=== PATIENT | female | born 1970 | race Caucasian/White ===

== ENCOUNTER 2017-01-13 00:56 | Emergency (ER) | payer SELFPAY ==
[2017-01-13 01:18] VITALS: PULSE 65; RESP 16; TEMP 98; O2SAT 98
[2017-01-13] MEDS ORDERED: Sodium Chloride 0.9% 1,000 ML IV STA (01:48)
--- NOTE | 2017-01-13 02:07 | ED PDOC ---
HPI: Headache Time Seen by Provider: 01/13/17 01:15 Chief Complaint (Nursing): Headache Chief Complaint (Provider): headache History Per: Patient History/Exam Limitations: no limitations Onset/Duration Of Symptoms: Days (3), Waxing/Waning Current Symptoms Are (Timing): Still Present Quality: Pressure, "Pain" Additional History Per: Patient Additional Complaint(s): 46 y/o female history of migraines, hypertension presents with intermittent left -sided headache x 3 days. Patient notes no improvement with Fioricet and extra Lisinopril doses. Patient notes intermittent chest pressure x 12 hours today. Patient states she took a Benadryl tonight to see if it would help with her symptoms and afterwards felt very "weak" and "tired". Denies fever, dizziness, neck pain, vision changes, extremity numbness/weakness, shortness of breath, palpitations, abdominal pain, leg pain/swelling. Patient denies trauma, problems at home. Past Medical History Reviewed: Historical Data, Nursing Documentation, Vital Signs Vital Signs: Last Vital Signs Temp 98.0 F 01/13/17 01:14 Pulse 65 01/13/17 01:14 Resp 16 01/13/17 01:14 BP 122/68 01/13/17 01:14 Pulse Ox 98 01/13/17 01:14 - Medical History PMH: HTN, Migraine - Family History Family History: States: Unknown Family Hx - Home Medications Home Medications: Ambulatory Orders Medication Instructions Recorded Clindamycin [Cleocin] 300 mg PO BID #14 cap 01/14/16 Ibuprofen [Motrin] 600 mg PO Q6 #20 tab 01/14/16 DiphenhydrAMINE [Benadryl] 25 mg PO Q6H PRN #10 cap 12/06/16 predniSONE [Prednisone] 40 mg PO DAILY #8 tab 12/06/16 Naproxen [Naprosyn] 500 mg PO Q12 PRN #20 tablet 01/13/17 - Allergies Allergies/Adverse Reactions: Allergies Allergy/AdvReac Type Severity Reaction Status Date / Time amoxicillin Allergy RASH Verified 01/13/17 01:17 Penicillins Allergy RASH Verified 01/14/16 18:14 Review of Systems ROS Statement: Except As Marked, All Systems Reviewed And Found Negative Cardiovascular: Positive for: Chest Pain Neurological: Positive for: Headache Physical Exam - Reviewed Nursing Documentation Reviewed: Yes Vital Signs Reviewed: Yes - Physical Exam Appears: Positive for: Well, Non-toxic, No Acute Distress Head Exam: Positive for: ATRAUMATIC, NORMAL INSPECTION, NORMOCEPHALIC Skin: Positive for: Normal Color Eye Exam: Positive for: Normal appearance, EOMI, PERRL ENT: Positive for: Normal ENT Inspection Cardiovascular/Chest: Positive for: Regular Rate, Rhythm Respiratory: Positive for: Normal Breath Sounds Gastrointestinal/Abdominal: Positive for: Normal Exam Back: Positive for: Normal Inspection Extremity: Positive for: Normal ROM Neurologic/Psych: Positive for: Alert, Oriented - Laboratory Results Result Diagrams: 01/13/17 02:23 01/13/17 02:23 - ECG ECG: Positive for: Viewed By Me (reviewed by ED attending) ECG Rhythm: Positive for: Sinus Rhythm O2 Sat by Pulse Oximetry: 98 Pulse Ox Interpretation: Normal - Radiology X-Ray: Viewed By Me X-Ray Interpretation: No Acute Disease - Progress ED Course And Treament: labs, CT head, chest xray, IV fluids, IV reglan, PO tylenol EXAM: CT Head Without Intravenous Contrast. CLINICAL HISTORY: 46 years old, female; Pain; Headache TECHNIQUE: Axial computed tomography images of the head/brain without intravenous contrast. This CT exam was performed using one or more of the following dose reduction techniques: automated exposure control, adjustment of the mA and/or kV according to patient size, and/or use of iterative reconstruction technique. Coronal and sagittal reformatted images were created and reviewed. EXAM DATE/TIME: 01/13/2017 1:45 AM COMPARISON: None is available. FINDINGS: BRAIN: Faint basal ganglia calcification, which is most likely physiologic in nature, in a patient of this age. No other significant abnormality identified. No acute hemorrhage seen within the brain. No acute extra-axial fluid collections visualized. No evidence of significant mass effect within the brain. Normal rodgers-white matter differentiation. VENTRICLES: No evidence of significant hydrocephalus. BONES/JOINTS: No acute fractures or other acute bony abnormality noted. SOFT TISSUES: No acute abnormality of the visualized soft tissues is seen. SINUSES: Visualized paranasal sinuses appear clear. MASTOID AIR CELLS: Mastoid air cells appear clear. IMPRESSION: - No acute findings seen within the brain. - See above for remaining findings. On re-eval, patient sleeping; upon awakening states headache resolved. Patient educated on findings, discharged with rx Naproxen. Advised follow up PMD 2-3 days. Return to ED for worsening/concerning symptoms. Disposition - Clinical Impression Clinical Impression: Headache, Chest pain - Patient ED Disposition Is Patient to be Admitted: No Counseled Patient/Family Regarding: Studies Performed, Diagnosis, Need For Followup, Rx Given - Disposition Disposition: Routine/Home Disposition Time: 03:52 Condition: IMPROVED Prescriptions: Naproxen [Naprosyn] 500 mg PO Q12 PRN #20 tablet PRN Reason: Pain, Moderate (4-7) Instructions: Acute Headache (ED), Noncardiac Chest Pain (ED)
[2017-01-13 02:29] LABS: BASO # 0.1 K/uL (0.0-0.2); BASO % 0.8 % (0.0-2.0); EOS # 0.1 K/uL (0.0-0.7); HEMATOCRIT 37.4 % (34.0-47.0); LYMPH # 1.8 K/uL (1.0-4.3); LYMPH % 24.1 % (20.0-40.0); MEAN CELL VOLUME 87.4 fl (81.0-99.0); MEAN CORPUSCULAR HEMOGLOBIN 29.3 pg (27.0-31.0); MEAN CORPUSCULAR HGB CONC 33.6 g/dL (33.0-37.0); MEAN PLATELET VOLUME 10.4 fl (7.2-11.7); MONO # 0.6 K/uL (0.0-0.8); MONO % 8.7 % (0.0-10.0); NEUT # 4.8 K/uL (1.8-7.0); NEUT % 64.4 % (50.0-75.0); NRBC % 0.1 % (0.0-0.0); RED CELL DISTRIBUTION WIDTH 14.1 % (11.5-14.5); WHITE BLOOD COUNT 7.4 K/uL (4.8-10.8)
[2017-01-13 02:32] LABS: CHLORIDE 101 mmol/L (98-107); SODIUM 139 mmol/l (132-148)
[2017-01-13 02:33] LABS: POTASSIUM 3.9 MMOL/L (3.6-5.0)
[2017-01-13 02:34] LABS: GFR AFRICAN-AMERICAN > 60
[2017-01-13 02:35] LABS: ALB/GLOB RATIO 1.2 (1.0-2.1); ALKALINE PHOSPHATASE 68 U/L (38-126); ALT/SGPT 46 U/L (9-52); AST/SGOT 38 U/L (14-36); BILIRUBIN,TOTAL 0.5 mg/dl (0.2-1.3); BLOOD UREA NITROGEN 12 mg/dl (7-17); CALCIUM 9.8 mg/dL (8.4-10.2); CARBON DIOXIDE 26 mmol/L (22-30); GLUCOSE,RANDOM 95 mg/dL (65-105); TOTAL PROTEIN 7.9 G/DL (6.3-8.2)
--- NOTE | 2017-01-13 02:38 | CT ---
EXAM: CT Head Without Intravenous Contrast. CLINICAL HISTORY: 46 years old, female; Pain; Headache TECHNIQUE: Axial computed tomography images of the head/brain without intravenous contrast. This CT exam was performed using one or more of the following dose reduction techniques: automated exposure control, adjustment of the mA and/or kV according to patient size, and/or use of iterative reconstruction technique. Coronal and sagittal reformatted images were created and reviewed. EXAM DATE/TIME: 01/13/2017 1:45 AM COMPARISON: None is available. FINDINGS: BRAIN: Faint basal ganglia calcification, which is most likely physiologic in nature, in a patient of this age. No other significant abnormality identified. No acute hemorrhage seen within the brain. No acute extra-axial fluid collections visualized. No evidence of significant mass effect within the brain. Normal rodgers-white matter differentiation. VENTRICLES: No evidence of significant hydrocephalus. BONES/JOINTS: No acute fractures or other acute bony abnormality noted. SOFT TISSUES: No acute abnormality of the visualized soft tissues is seen. SINUSES: Visualized paranasal sinuses appear clear. MASTOID AIR CELLS: Mastoid air cells appear clear. IMPRESSION: - No acute findings seen within the brain. - See above for remaining findings.
[2017-01-13 04:15] VITALS: BP 121/67
--- NOTE | 2017-01-13 07:07 | CARD ---
APPROVED REPORT EKG Measurement Heart [id number] <Conclusion> Normal sinus rhythm Possible Left atrial enlargement Borderline ECG
--- NOTE | 2017-01-13 11:37 | RAD ---
HISTORY: chest pain COMPARISON: No prior. FINDINGS: LUNGS: The lungs are well inflated and clear. PLEURA: No significant pleural effusion identified, no pneumothorax apparent. CARDIOVASCULAR: Normal. OSSEOUS STRUCTURES: No significant abnormalities. VISUALIZED UPPER ABDOMEN: Normal. OTHER FINDINGS: None. IMPRESSION: No active pulmonary disease.
== END 2017-01-13 04:20 | disposition home or self-care (01) ==
LOC: H.ER 00:56
DX: R51 Headache (principal); R07.89 Other chest pain
CPT/HCPCS: 70450; 71010; 80053; 81025; 84484; 85025; 93005; 96365; 99283; J2765; J7040

== ENCOUNTER 2017-07-14 14:30 | Observation (INO) | payer MEDICAID ==
--- NOTE | 2017-07-14 15:36 | ED PDOC ---
HPI: Abdomen Time Seen by Provider: 07/14/17 15:10 Chief Complaint (Nursing): Abdominal Pain Chief Complaint (Provider): Abdominal pain History Per: Patient History/Exam Limitations: no limitations Onset/Duration Of Symptoms: Days (1) Outside of [place] travel?: No Current Symptoms Are (Timing): Still Present Location Of Pain/Discomfort: LLQ Quality Of Discomfort: "Pain" Associated Symptoms: Nausea. denies: Fever, Chills, Vomiting, Diarrhea Additional History Per: Patient Additional Complaint(s): The patient is a 47yo female, presents to ED for evaluation of left sided lower abdominal pain, ongoing since last night. Patient reports the pain is constant and not related to food or urinary discomfort. Patient reports she feels a lot of pain with movement and is also complaining of a bitter taste in her mouth which she describes as reflux. She also reports associated nausea but denies any fever, vomiting, diarrhea or urinary symptoms. Patient is additionally complaining of mild vaginal spotting, present for the past 2 months without pain. She offers no other medical complaints. PCP: Veronique carver Abnormal Vaginal Bleeding: Yes Past Medical History Reviewed: Historical Data, Nursing Documentation, Vital Signs Vital Signs: Last Vital Signs Temp 98 F 07/14/17 14:37 Pulse 56 L 07/14/17 22:10 Resp 18 07/14/17 14:37 BP 139/77 07/14/17 14:37 Pulse Ox 99 07/14/17 22:10 - Medical History PMH: Gastritis, HTN, Migraine - Surgical History Other surgeries: breast fibroma removal - Family History Family History: States: No Known Family Hx, Unknown Family Hx - Social History Current smoker - smoking cessation education provided: No Ex-Smoker (has not smoked in the last 12 months): No Alcohol: None Drugs: Denies - Home Medications Home Medications: Ambulatory Orders Medication Instructions Recorded Clindamycin [Cleocin] 300 mg PO BID #14 cap 01/14/16 Ibuprofen [Motrin] 600 mg PO Q6 #20 tab 01/14/16 DiphenhydrAMINE [Benadryl] 25 mg PO Q6H PRN #10 cap 12/06/16 predniSONE [Prednisone] 40 mg PO DAILY #8 tab 12/06/16 Naproxen [Naprosyn] 500 mg PO Q12 PRN #20 tablet 01/13/17 Omeprazole 20 mg PO DAILY #30 tablet. 07/14/17 - Allergies Allergies/Adverse Reactions: Allergies Allergy/AdvReac Type Severity Reaction Status Date / Time amoxicillin Allergy RASH Verified 01/13/17 01:17 Penicillins Allergy RASH Verified 01/14/16 18:14 Physical Exam - Reviewed Nursing Documentation Reviewed: Yes Vital Signs Reviewed: Yes - Physical Exam Appears: Positive for: Non-toxic, No Acute Distress Head Exam: Positive for: ATRAUMATIC, NORMAL INSPECTION, NORMOCEPHALIC Skin: Positive for: Warm Eye Exam: Positive for: EOMI, PERRL Neck: Positive for: Supple Cardiovascular/Chest: Positive for: Regular Rate, Rhythm Respiratory: Positive for: Normal Breath Sounds. Negative for: Wheezing, Respiratory Distress Gastrointestinal/Abdominal: Positive for: Soft, Tenderness (left lower quadrant tenderness) Extremity: Positive for: Normal ROM. Negative for: Deformity, Swelling Neurologic/Psych: Positive for: Alert, Oriented. Negative for: Motor/Sensory Deficits - Laboratory Results Result Diagrams: 07/14/17 16:25 07/14/17 16:29 - ECG ECG: Positive for: Interpreted By Me, Viewed By Me ECG Rhythm: Positive for: Normal QRS, Normal ST Segment, Sinus Bradycardia Rate: 56 O2 Sat by Pulse Oximetry: 99 (RA) Pulse Ox Interpretation: Normal Medical Decision Making Medical Decision Making: Time: 1540 Impression: Abdominal pain Differential: Diverticulitis, ovarian cyst, uterine fibroids, UTI, other conditions considered not listed. Plan: -- CT AP PO & IV Contrast -- Labs -- Morphine 2mg IV -- Zofran 4mg IV -- ED Observation Scribe Attestation: Documented by Beena Bartlett acting as a scribe for Gerasim Orbelyan, MD. Provider Attestation: All medical record entries made by the Scribe were at my direction and personally dictated by me. I have reviewed the chart and agree that the record accurately reflects my personal performance of the history, physical exam, medical decision making, and the department course for this patient. I have also personally directed, reviewed, and agree with the discharge instructions and disposition. ED OBSERVATION Date of observation admission: 07/14/17 Time of observation admission: 15:38 - Observation admission statement Patient is being placed in observation because:: Patient with abdominal pain, vaginal bleeding x 2 months. - Goals of Observation Goals of observation are:: Pending ER workup - Progress Note Progress Note: 07/14/17 15:38 Patient pending ED workup. 07/14/17 17:[address] A/P with PO and IV contrast 07/14/17 19:[address] A/P with PO and IV Contrast FINDINGS: Lower thorax: There is minimal bibasilar atelectatic change or scarring. ABDOMEN: Liver: There is diffuse fatty liver and hepatomegaly. Gallbladder and bile ducts: Unremarkable. No calcified stones. No ductal dilation. Pancreas: Unremarkable. No mass. No ductal dilation. Spleen: Unremarkable. No splenomegaly. Adrenals: Unremarkable. No mass. Kidneys and ureters: Unremarkable. No solid mass. No hydronephrosis. Stomach and bowel: Unremarkable. No obstruction. No mucosal thickening. Appendix: The appendix is unremarkable and seen best on axial image 113 of series 3. PELVIS: Bladder: Unremarkable. No mass. Reproductive: Unremarkable as visualized. ABDOMEN and PELVIS Intraperitoneal space: Unremarkable. No free air. No significant fluid collection. Bones/joints: There are degenerative changes of the spine. No acute fracture. No dislocation. Soft tissues: Unremarkable. Vasculature: Unremarkable. No abdominal aortic aneurysm. Lymph nodes: There are prominent right lower quadrant mesenteric lymph nodes suspicious for mild mesenteric adenitis. IMPRESSION: 1. There are prominent right lower quadrant mesenteric lymph nodes suspicious for mild mesenteric adenitis. 2. No other acute CT pathology 07/14/17 22:07 US Transvaginal FINDINGS: Uterus/cervix: Uterus measures 7.4 x 3.9 x 5.2 cm in size. Few uterine masses, largest measuring 2.9 x 2.9 x 2.4 cm along lower uterine segment/cervix and pedunculated. Endometrium: 0.4 cm in thickness. Right ovary: 2.2 x 1.3 x 1.9 cm in size. No mass. Normal flow. Left ovary: 1.7 x 1.2 x 1.9 cm in size. No mass. Normal flow. Free fluid: No significant free fluid. Bladder: Empty bladder which cannot be evaluated with this probe. IMPRESSION: 1. Probable fibroid uterus. Patient is stable, and has no complaints at this time. Results discussed with patient, is advised to follow up at the clinic. Patient will be give Rx for Prilosec for her gastritis, and is stable for discharge home. Clinical Impression: Mesenteric adenitis/Uterine fibroid Disposition - Clinical Impression Clinical Impression: Mesenteric adenitis, Uterine fibroid - Patient ED Disposition Is Patient to be Admitted: No Doctor Will See Patient In The: Office Counseled Patient/Family Regarding: Studies Performed, Diagnosis, Need For Followup - Disposition Disposition: Routine/Home Disposition Time: 22:06 Condition: STABLE
[2017-07-14] MEDS ORDERED: Iohexol 240 (50 ml) ONE (16:38)
[2017-07-14 16:41] LABS: BASO % 0.7 % (0.0-2.0); EOS # 0.1 K/uL (0.0-0.7); EOS % 1.5 % (0.0-4.0); HEMATOCRIT 38.3 % (34.0-47.0); LYMPH # 1.4 K/uL (1.0-4.3); LYMPH % 21.8 % (20.0-40.0); MEAN CELL VOLUME 88.6 fl (81.0-99.0); MEAN CORPUSCULAR HGB CONC 32.8 g/dL (33.0-37.0); MEAN PLATELET VOLUME 10.4 fl (7.2-11.7); MONO # 0.6 K/uL (0.0-0.8); NEUT # 4.1 K/uL (1.8-7.0); RED CELL DISTRIBUTION WIDTH 13.9 % (11.5-14.5); WHITE BLOOD COUNT 6.3 K/uL (4.8-10.8)
[2017-07-14] MEDS ORDERED: Iohexol 240 (50 ml) PO ONE (16:50)
[2017-07-14 17:02] LABS: ALB/GLOB RATIO 1.3 (1.0-2.1); ALKALINE PHOSPHATASE 54 U/L (38-126); ALT/SGPT 55 U/L (9-52); AST/SGOT 39 U/L (14-36); BILIRUBIN,TOTAL 0.5 mg/dl (0.2-1.3); BLOOD UREA NITROGEN 15 mg/dl (7-17); CALCIUM 9.5 mg/dL (8.4-10.2); CARBON DIOXIDE 24 mmol/L (22-30); CHLORIDE 105 mmol/L (98-107); GFR AFRICAN-AMERICAN > 60; GLUCOSE,RANDOM 88 mg/dL (65-105); LIPASE 150 U/L (23-300); POTASSIUM 3.8 MMOL/L (3.6-5.0); SODIUM 142 mmol/l (132-148); TOTAL PROTEIN 7.5 G/DL (6.3-8.2)
[2017-07-14] MEDS ORDERED: Iohexol 300 100 ML IJ ONE (18:47)
[2017-07-14] MEDS ORDERED: Sodium Chloride 0.9% 50 ML IV ONE (18:47)
--- NOTE | 2017-07-14 21:48 | US ---
EXAM: US Pelvis, Transvaginal CLINICAL HISTORY: 47 years old, female; Pain; Other: Left pelvic pain TECHNIQUE: Real-time transvaginal pelvic ultrasound (complete) with image documentation. Transvaginal imaging was used for better evaluation of the endometrium and adnexa. COMPARISON: CT - ABD PELVIS PO IV CON 07/14/2017 6:56:25 PM FINDINGS: Uterus/cervix: Uterus measures 7.4 x 3.9 x 5.2 cm in size. Few uterine masses, largest measuring 2.9 x 2.9 x 2.4 cm along lower uterine segment/cervix and pedunculated. Endometrium: 0.4 cm in thickness. Right ovary: 2.2 x 1.3 x 1.9 cm in size. No mass. Normal flow. Left ovary: 1.7 x 1.2 x 1.9 cm in size. No mass. Normal flow. Free fluid: No significant free fluid. Bladder: Empty bladder which cannot be evaluated with this probe. IMPRESSION: 1. Probable fibroid uterus.
[2017-07-14 22:18] VITALS: BP 125/80; PULSE 75; RESP 16; TEMP 97.9; O2SAT 100
--- NOTE | 2017-07-15 08:38 | CARD ---
APPROVED REPORT EKG Measurement Heart [id number] <Conclusion> Sinus bradycardia Otherwise normal ECG
--- NOTE | 2017-07-15 09:06 | CT ---
PROCEDURE: CT Abdomen and Pelvis with contrast HISTORY: lower abdominal pain LLQ COMPARISON: Not available TECHNIQUE: Contrast dose: 100 mL Omnipaque 300 Radiation dose: Total exam DLP = 1216.07 mGy-cm. This CT exam was performed using one or more of the following dose reduction techniques: Automated exposure control, adjustment of the mA and/or kV according to patient size, and/or use of iterative reconstruction technique. FINDINGS: LOWER THORAX: Unremarkable. LIVER: Mild hepatomegaly. Smooth contour. No mass. No biliary dilatation. Diffusely diminished attenuation consistent with fatty infiltration. GALLBLADDER AND BILE DUCTS: Unremarkable. PANCREAS: Unremarkable. No gross lesion or ductal dilatation. SPLEEN: Unremarkable. ADRENALS: Unremarkable. No mass. KIDNEYS AND URETERS: Unremarkable. No hydronephrosis. No solid mass. VASCULATURE: Unremarkable. No aortic aneurysm. BOWEL: Unremarkable. No obstruction. No gross mural thickening. APPENDIX: Normal appendix. PERITONEUM: Unremarkable. No free fluid. No free air. LYMPH NODES: No retroperitoneal or pelvic lymphadenopathy. There are shotty subcentimeter mesenteric lymph nodes identified within the small bowel mesenteric and in the right lower quadrant medial to the cecum/ascending colon. This is nonspecific but may indicate a mesenteric adenitis. BLADDER: Unremarkable. REPRODUCTIVE: Unremarkable uterus BONES: No acute fracture. OTHER FINDINGS: None. IMPRESSION: Shotty subcentimeter mesenteric nodes in the small bowel mesenteric and medial to the cecum/ascending colon. Consistent with mesenteric adenitis. No evidence of diverticulitis. Mild hepatomegaly with fatty infiltration of the liver. No additional abnormality. Preliminary interpretation of this examination was reported by [email or web address] at 7:39 p.m. on 07/14/2017. There is concurrence of this report with the preliminary interpretation.
== END 2017-07-14 22:18 | disposition home or self-care (01) ==
LOC: H.ER 14:30 → H.EROBSV 15:38
PROVIDERS: ADMIT Emergency Medicine; ATTEND Emergency Medicine
DX: I88.0 Nonspecific mesenteric lymphadenitis (principal); D25.9 Leiomyoma of uterus, unspecified; K29.70 Gastritis, unspecified, without bleeding; I10 Essential (primary) hypertension; G43.909 Migraine, unspecified, not intractable, without status migrainosus; Z88.0 Allergy status to penicillin
CPT/HCPCS: 36415; 74177; 76830; 80053; 81025; 83690; 85025; 93005; 96374; 96375; 99284; G0378; J2270; J2405; Q9966; Q9967

== ENCOUNTER 2017-08-05 15:57 | Emergency (ER) | payer MEDICAID ==
[2017-08-05 16:14] VITALS: O2SAT 98
[2017-08-05] MEDS ORDERED: DiphenhydrAMINE 50 mg/ml Inj IVP STA (16:52)
[2017-08-05] MEDS ORDERED: Sodium Chloride 0.9% 500 ML IV STA (16:52)
[2017-08-05] MEDS ORDERED: DiphenhydrAMINE 50 mg/ml Inj ONE (17:20)
[2017-08-05 17:24] LABS: BASO % 0.5 % (0.0-2.0); EOS # 0.1 K/uL (0.0-0.7); EOS % 1.6 % (0.0-4.0); HEMATOCRIT 40.3 % (34.0-47.0); LYMPH # 1.9 K/uL (1.0-4.3); MEAN CELL VOLUME 89.2 fl (81.0-99.0); MEAN CORPUSCULAR HEMOGLOBIN 29.3 pg (27.0-31.0); MEAN CORPUSCULAR HGB CONC 32.9 g/dL (33.0-37.0); MEAN PLATELET VOLUME 9.5 fl (7.2-11.7); MONO # 0.8 K/uL (0.0-0.8); MONO % 9.6 % (0.0-10.0); NEUT # 5.3 K/uL (1.8-7.0); NEUT % 65.3 % (50.0-75.0); RED CELL DISTRIBUTION WIDTH 14.5 % (11.5-14.5); WHITE BLOOD COUNT 8.2 K/uL (4.8-10.8)
--- NOTE | 2017-08-05 17:26 | ED PDOC ---
HPI: Headache History Per: Patient History/Exam Limitations: no limitations Additional Complaint(s): 47 y/o F with a PMHx of migraines, chronic rhinitis and HTN presenting with severe headache that began last night. Pt describes pain starts in left nostril , radiates to left maxillary area and then diffusely to head, intensity in 9/10 and associated with left eye photophobia. Pt took OTC Excedrin, Naproxen, Fluticasone spray, Albuterol inhaler and Benadryl with NO improvement. Pt complain of yellow thick nasal discharge with scant blood at times. Pt adherent to HTN meds. Pt denies N/V, fever, CP, SOB, abdominal pain or change in bowel movement. Allergies: Penicillin. PMHx: migraines, chronic rhinitis, HTN and gastritis. PSHx: denied. 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 <Pawan Duvall - Last Filed: 08/05/17 19:04> <Marquita Avila - Last Filed: 08/06/17 22:14> Time Seen by Provider: 08/05/17 16:19 Chief Complaint (Nursing): Headache Supervising Attending Note - Supervising Attending Note The Documented history was done by the: Physician Asphalt Paving Superintendent, Attending Physician The documented physical exam was done by the: Physician Asphalt Paving Superintendent, Attending Physician - Attestation: I have personally seen and examined this patient.: Yes I have fully participated in the care of the patient.: Yes I have reviewed all pertinent clinical information: Yes <Marqutia Avila - Last Filed: 08/06/17 22:14> Past Medical History Vital Signs: Last Vital Signs Temp 98.1 F 08/05/17 16:50 Pulse 80 08/05/17 16:04 Resp 18 08/05/17 16:04 BP 122/57 L 08/05/17 16:04 Pulse Ox 98 08/05/17 16:04 - Medical History PMH: Gastritis, HTN, Migraine - Family History Family History: States: Unknown Family Hx <Pawan Duvall - Last Filed: 08/05/17 19:04> Reviewed: Historical Data, Nursing Documentation, Vital Signs Vital Signs: Last Vital Signs Temp 98 F 08/05/17 19:10 Pulse 75 08/05/17 19:10 Resp 20 08/05/17 19:10 BP 130/70 08/05/17 19:10 Pulse Ox 98 08/05/17 19:10 <AustinMarquita J - Last Filed: 08/06/17 22:14> - Home Medications Home Medications: Ambulatory Orders Medication Instructions Recorded Clindamycin [Cleocin] 300 mg PO BID #14 cap 01/14/16 Ibuprofen [Motrin] 600 mg PO Q6 #20 tab 01/14/16 DiphenhydrAMINE [Benadryl] 25 mg PO Q6H PRN #10 cap 12/06/16 predniSONE [Prednisone] 40 mg PO DAILY #8 tab 12/06/16 Naproxen [Naprosyn] 500 mg PO Q12 PRN #20 tablet 01/13/17 Omeprazole 20 mg PO DAILY #30 tablet.dr 07/14/17 Albuterol HFA [Ventolin HFA 90 1 - 2 puff IH Q4 PRN #1 inhaler 07/27/17 mcg/actuation (8 g)] Azithromycin [Zithromax] 250 mg PO DAILY #6 tab 07/27/17 Fexofenadine/Pseudoephedrine 1 each PO DAILY #14 tab.er.12h 07/27/17 [Leah-D 12 Hour Tablet] Fluticasone Nasal [Flonase] 1 actuation NS DAILY #1 spr 07/27/17 Naproxen [Naprosyn] 500 mg PO BID PRN #14 tablet 07/27/17 Acetaminophen/Butalbital/Caf 1 tab PO TID PRN #20 tab 08/05/17 [Fioricet] Omeprazole Magnesium [Prilosec Otc] 20 mg PO DAILY #30 tcp 08/05/17 - Allergies Allergies/Adverse Reactions: Allergies Allergy/AdvReac Type Severity Reaction Status Date / Time amoxicillin Allergy RASH Verified 07/27/17 11:43 Penicillins Allergy RASH Verified 07/27/17 11:43 Review of Systems ROS Statement: Except As Marked, All Systems Reviewed And Found Negative (and as per HPI) Constitutional: Positive for: Chills, Weakness, Malaise ENT: Positive for: Nose Pain, Nose Discharge, Nose Congestion. Negative for: Throat Pain Cardiovascular: Positive for: Light Headedness Neurological: Positive for: Headache, Dizziness. Negative for: Weakness, Numbness <Marquita Avila - Last Filed: 08/06/17 22:14> Physical Exam - Physical Exam Appears: Positive for: Well, Non-toxic Head Exam: Positive for: ATRAUMATIC, NORMAL INSPECTION Skin: Positive for: Normal Color, Warm Eye Exam: Positive for: EOMI, PERRL ENT: Positive for: Sinus Pain/Drainage, Nasal Congestion ((Nasal turbinates: presence of erythema and edema.)) <Pawan Duvall - Last Filed: 08/05/17 19:04> - Laboratory Results Result Diagrams: 08/05/17 17:20 08/05/17 17:20 - ECG O2 Sat by Pulse Oximetry: 98 <Pawan Duvall - Last Filed: 08/05/17 19:04> - Laboratory Results Result Diagrams: 08/05/17 17:20 08/05/17 17:20 <Marquita Avila - Last Filed: 08/06/17 22:14> Medical Decision Making Medical Decision Makin47 y/o F with a PMHx of migraines, chronic rhinitis and HTN presenting with severe headache. Plan: --CBC --CMP --Urine BHCG quantitative --Urine dipstick --IV NSS --Benadryl --Metoclopramide --Methylprednisolone 5:30pm Pt reports mild improvement of headache with provided medications. 6:49pm Pt reports headache is improving, becoming mild. Pt will be discharged, recommended to follow up with PCP, she has an appointment set up within [address] Jones at [facility]. Pt advised to discuss further treatment with PCP for her chronic rhinitis, HTN and migraines. <Pawan Duvall - Last Filed: 08/05/17 19:04> Disposition - Patient ED Disposition Is Patient to be Admitted: No Discussed With : Marquita Avila - Disposition Disposition: Routine/Home Disposition Time: 18:50 <Pawan Duvall - Last Filed: 08/05/17 19:04> <Marquita Avila - Last Filed: 08/06/17 22:14> - Clinical Impression Clinical Impression: Severe headache - Disposition Condition: GOOD Prescriptions: Acetaminophen/Butalbital/Caf [Fioricet] 1 tab PO TID PRN #20 tab PRN Reason: Headache Omeprazole Magnesium [Prilosec Otc] 20 mg PO DAILY #30 tcp Instructions: Migraine Headache (ED), Allergic Rhinitis (ED), Acute Headache ( ED) Forms: [facility] (Icelandic) Print Language: SAMI
[2017-08-05 17:44] LABS: ALB/GLOB RATIO 1.2 (1.0-2.1); ALKALINE PHOSPHATASE 59 U/L (38-126); ALT/SGPT 44 U/L (9-52); AST/SGOT 29 U/L (14-36); BLOOD UREA NITROGEN 14 mg/dl (7-17); CALCIUM 10.1 mg/dL (8.4-10.2); CARBON DIOXIDE 26 mmol/L (22-30); CHLORIDE 104 mmol/L (98-107); GFR AFRICAN-AMERICAN > 60; GLUCOSE,RANDOM 100 mg/dL (65-105); POTASSIUM 3.9 MMOL/L (3.6-5.0); SODIUM 140 mmol/l (132-148); TOTAL PROTEIN 7.5 G/DL (6.3-8.2)
[2017-08-05 17:45] LABS: BILIRUBIN,TOTAL 0.5 mg/dl (0.2-1.3)
[2017-08-05 19:11] VITALS: BP 130/70; PULSE 75; RESP 20; TEMP 98
== END 2017-08-05 19:12 | disposition home or self-care (01) ==
LOC: H.ER 15:57
DX: R51 Headache (principal); I10 Essential (primary) hypertension; J31.0 Chronic rhinitis; Z88.0 Allergy status to penicillin
CPT/HCPCS: 80053; 85025; 96361; 96374; 96375; 99285; J1200; J2765; J2930; J7040

== ENCOUNTER 2017-11-20 13:09 | Emergency (ER) | payer MEDICAID ==
[2017-11-20 13:30] VITALS: BP 138/72; PULSE 63; RESP 18; TEMP 98.3; O2SAT 96
[2017-11-20] MEDS ORDERED: Sodium Chloride 0.9% 1,000 ML IV STA (14:15)
--- NOTE | 2017-11-20 14:23 | ED PDOC ---
HPI: General Adult Time Seen by Provider: 11/20/17 13:58 Chief Complaint (Nursing): Dizziness/Lightheaded Chief Complaint (Provider): Dizziness History Per: Patient History/Exam Limitations: no limitations Onset/Duration Of Symptoms: Days (3) Additional Complaint(s): Pt. with headache frontal that is not the worst in her life. Feels like her usual migraine. No neck pain, numbness, tingles, weakness. Has dizziness with it. No vision changes. No chest pain, dyspnea. Took migraine med at home with no relief. States she gets an IV txt that helps. Past Medical History Reviewed: Nursing Documentation, Vital Signs Vital Signs: Last Vital Signs Temp 98.3 F 11/20/17 13:27 Pulse 63 11/20/17 13:27 Resp 18 11/20/17 13:27 BP 138/72 11/20/17 13:27 Pulse Ox 96 11/20/17 14:47 - Medical History PMH: Gastritis, HTN, Migraine - Surgical History Surgical History: No Surg Hx - Family History Family History: States: Unknown Family Hx - Living Arrangements Living Arrangements: With Family - Social History Alcohol: None Drugs: Denies - Home Medications Home Medications: Ambulatory Orders Medication Instructions Recorded Clindamycin [Cleocin] 300 mg PO BID #14 cap 01/14/16 Ibuprofen [Motrin] 600 mg PO Q6 #20 tab 01/14/16 DiphenhydrAMINE [Benadryl] 25 mg PO Q6H PRN #10 cap 12/06/16 predniSONE [Prednisone] 40 mg PO DAILY #8 tab 12/06/16 Naproxen [Naprosyn] 500 mg PO Q12 PRN #20 tablet 01/13/17 Omeprazole 20 mg PO DAILY #30 tablet. 07/14/17 Albuterol HFA [Ventolin HFA 90 1 - 2 puff IH Q4 PRN #1 inhaler 07/27/17 mcg/actuation (8 g)] Azithromycin [Zithromax] 250 mg PO DAILY #6 tab 07/27/17 Fexofenadine/Pseudoephedrine 1 each PO DAILY #14 tab.er.12h 07/27/17 [Leah-D 12 Hour Tablet] Fluticasone Nasal [Flonase] 1 actuation NS DAILY #1 spr 07/27/17 Naproxen [Naprosyn] 500 mg PO BID PRN #14 tablet 07/27/17 Acetaminophen/Butalbital/Caf 1 tab PO TID PRN #20 tab 08/05/17 [Fioricet] Omeprazole Magnesium [Prilosec Otc] 20 mg PO DAILY #30 tcp 08/05/17 - Allergies Allergies/Adverse Reactions: Allergies Allergy/AdvReac Type Severity Reaction Status Date / Time amoxicillin Allergy RASH Verified 07/27/17 11:43 Penicillins Allergy RASH Verified 07/27/17 11:43 Review of Systems ROS Statement: Except As Marked, All Systems Reviewed And Found Negative Neurological: Positive for: Headache, Dizziness Physical Exam - Reviewed Nursing Documentation Reviewed: Yes Vital Signs Reviewed: Yes - Physical Exam Appears: Positive for: Non-toxic, No Acute Distress Head Exam: Positive for: ATRAUMATIC, NORMAL INSPECTION, NORMOCEPHALIC Skin: Positive for: Normal Color, Warm, DRY Eye Exam: Positive for: EOMI, Normal appearance, PERRL ENT: Positive for: Normal ENT Inspection Neck: Positive for: Normal, Painless ROM Cardiovascular/Chest: Positive for: Regular Rate, Rhythm Respiratory: Positive for: CNT, Normal Breath Sounds Gastrointestinal/Abdominal: Positive for: Normal Exam, Bowel Sounds, Soft. Negative for: Tenderness Back: Positive for: Normal Inspection. Negative for: L CVA Tenderness, R CVA Tenderness Extremity: Positive for: Normal ROM. 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 Negative for: Motor/Sensory Deficits, Aphasia, Facial Droop - Laboratory Results Result Diagrams: 11/20/17 14:44 11/20/17 14:44 Interpretation Of Abn Labs: no acute - ECG O2 Sat by Pulse Oximetry: 96 Pulse Ox Interpretation: Normal - CT Scan/US ct Other Rad Studies (CT/US): Read By Radiologist Other Rad Interpretation: no acute - Progress ED Course And Treament: 1803: Stable. AAOx3. Pain free. Tolerated po. Fu with pcp. Disposition - Clinical Impression Clinical Impression: Dizziness, Headache - Patient ED Disposition Is Patient to be Admitted: No Counseled Patient/Family Regarding: Studies Performed, Diagnosis, Need For Followup - Disposition Referrals: [facility] [Outside] - 11/21/17 Disposition: Routine/Home Disposition Time: 18:03 Condition: STABLE Additional Instructions: Return if not better in 3 days. Instructions: Dizziness (ED), Acute Headache (ED) Print Language: HEBREW
[2017-11-20 14:50] LABS: BASO % 0.9 % (0.0-2.0); EOS % 0.8 % (0.0-4.0); HEMOGLOBIN 13.1 g/dL (12.0-16.0); LYMPH # 1.2 K/uL (1.0-4.3); LYMPH % 21.1 % (20.0-40.0); MEAN CELL VOLUME 87.3 fl (81.0-99.0); MEAN CORPUSCULAR HEMOGLOBIN 29.3 pg (27.0-31.0); MEAN CORPUSCULAR HGB CONC 33.5 g/dL (33.0-37.0); MONO # 0.4 K/uL (0.0-0.8); MONO % 6.9 % (0.0-10.0); NEUT # 3.9 K/uL (1.8-7.0); NEUT % 70.3 % (50.0-75.0); NRBC % 0.1 % (0.0-0.0); RBC 4.47 Mil/uL (3.80-5.20); RED CELL DISTRIBUTION WIDTH 13.7 % (11.5-14.5); WHITE BLOOD COUNT 5.5 K/uL (4.8-10.8)
[2017-11-20 15:01] LABS: ALB/GLOB RATIO 1.2 (1.0-2.1); ALBUMIN 4.3 g/dL (3.5-5.0); ALT/SGPT 55 U/L (9-52); AST/SGOT 35 U/L (14-36); BLOOD UREA NITROGEN 10 mg/dl (7-17); CALCIUM 9.9 mg/dL (8.4-10.2); GFR AFRICAN-AMERICAN > 60; GFR NON-AFRICAN AMERICAN > 60
--- NOTE | 2017-11-20 17:30 | CT ---
PROCEDURE: CT HEAD WITHOUT CONTRAST. HISTORY: headache COMPARISON: CT head dated 01/13/2017. TECHNIQUE: Axial computed tomography images were obtained through the head/brain without intravenous contrast. Radiation dose: Total exam DLP = 1142.4 mGy-cm. This CT exam was performed using one or more of the following dose reduction techniques: Automated exposure control, adjustment of the mA and/or kV according to patient size, and/or use of iterative reconstruction technique. FINDINGS: HEMORRHAGE: No intracranial hemorrhage. BRAIN: Stable high density within the bilateral basal ganglia. No mass effect or edema. No atrophy or chronic microvascular ischemic changes. VENTRICLES: Unremarkable. No hydrocephalus. CALVARIUM: Unremarkable. PARANASAL SINUSES: Unremarkable as visualized. No significant inflammatory changes. MASTOID AIR CELLS: Unremarkable as visualized. No inflammatory changes. OTHER FINDINGS: None. IMPRESSION: Acute intracranial pathology.
--- NOTE | 2017-11-21 07:56 | CARD ---
APPROVED REPORT EKG Measurement Heart [id number] <Conclusion> Sinus bradycardia Possible Left atrial enlargement Borderline ECG
== END 2017-11-20 18:31 | disposition home or self-care (01) ==
LOC: H.ER 13:09
DX: R51 Headache (principal); R42 Dizziness and giddiness
CPT/HCPCS: 70450; 80053; 84484; 85025; 93005; 96374; 99283; J2765; J7040

== ENCOUNTER 2017-11-30 20:25 | Emergency (ER) | payer MEDICAID ==
[2017-11-30 22:09] VITALS: BP 111/68; PULSE 64; RESP 16; TEMP 97.7; O2SAT 98
--- NOTE | 2017-11-30 23:39 | ED PDOC ---
HPI: Allergic Reaction Time Seen by Provider: 11/30/17 22:51 Chief Complaint (Nursing): Allergic Reaction Chief Complaint (Provider): Allergic Reaction History Per: Patient History/Exam Limitations: no limitations Onset/Duration Of Symptoms: Days (x3) Current Symptoms Are (Timing): Still Present Context: Food Possible Cause: Food Associated Symptoms: Skin Rash, Swelling, Itching Home/EMS Treatment: Benadryl Additional Complaint(s): 47 year old female presents to ED with complaints of an allergic reaction x3 days and has a past medical history of migraines, GERD, and HTN. Patient states she ate pineapple 3 days ago and has been experiencing swelling and burning sensation to her lips and tongue since then. Confirms that she has been taking Benadryl intermittently with no relief. Notes last taking Benadryl this afternoon. Patient also mentions resolved pruritic rash on scalp. (-) fever, vomiting, or diarrhea. LMP: 2 months ago PCP: [facility] Past Medical History Reviewed: Historical Data, Nursing Documentation, Vital Signs Vital Signs: Last Vital Signs Temp 97.7 F 11/30/17 22:04 Pulse 64 11/30/17 22:04 Resp 16 11/30/17 22:04 BP 111/68 11/30/17 22:04 Pulse Ox 98 11/30/17 22:04 - Medical History PMH: Gastritis, HTN, Migraine - Surgical History Surgical History: No Surg Hx - Family History Family History: States: Unknown Family Hx - Living Arrangements Living Arrangements: With Family - Social History Current smoker - smoking cessation education provided: No Ex-Smoker (has not smoked in the last 12 months): No Alcohol: None Drugs: Denies - Home Medications Home Medications: Ambulatory Orders Medication Instructions Recorded Clindamycin [Cleocin] 300 mg PO BID #14 cap 01/14/16 Ibuprofen [Motrin] 600 mg PO Q6 #20 tab 01/14/16 DiphenhydrAMINE [Benadryl] 25 mg PO Q6H PRN #10 cap 12/06/16 predniSONE [Prednisone] 40 mg PO DAILY #8 tab 12/06/16 Naproxen [Naprosyn] 500 mg PO Q12 PRN #20 tablet 01/13/17 Omeprazole 20 mg PO DAILY #30 tablet. 07/14/17 Albuterol HFA [Ventolin HFA 90 1 - 2 puff IH Q4 PRN #1 inhaler 07/27/17 mcg/actuation (8 g)] Azithromycin [Zithromax] 250 mg PO DAILY #6 tab 07/27/17 Fexofenadine/Pseudoephedrine 1 each PO DAILY #14 tab.er.12h 07/27/17 [Leah-D 12 Hour Tablet] Fluticasone Nasal [Flonase] 1 actuation NS DAILY #1 spr 07/27/17 Naproxen [Naprosyn] 500 mg PO BID PRN #14 tablet 07/27/17 Acetaminophen/Butalbital/Caf 1 tab PO TID PRN #20 tab 08/05/17 [Fioricet] Omeprazole Magnesium [Prilosec Otc] 20 mg PO DAILY #30 tcp 08/05/17 DiphenhydrAMINE [Benadryl] 50 mg PO Q6 #20 cap 11/30/17 Famotidine [Pepcid] 40 mg PO DAILY #5 tablet 11/30/17 predniSONE [Prednisone] 40 mg PO DAILY 5 Days #10 tab 11/30/17 - Allergies Allergies/Adverse Reactions: Allergies Allergy/AdvReac Type Severity Reaction Status Date / Time amoxicillin Allergy RASH Verified 07/27/17 11:43 Penicillins Allergy RASH Verified 07/27/17 11:43 Review of Systems ROS Statement: Except As Marked, All Systems Reviewed And Found Negative Constitutional: Negative for: Fever ENT: Positive for: Other (lips and tongue swelling with burning sensation) Gastrointestinal: Negative for: Vomiting, Diarrhea Skin: Positive for: Rash (resolved pruritic rash) Physical Exam - Reviewed Nursing Documentation Reviewed: Yes Vital Signs Reviewed: Yes - Physical Exam Appears: Positive for: Non-toxic, No Acute Distress Skin: Positive for: Normal Color, Warm, Dry. Negative for: Rash Eye Exam: Positive for: Normal appearance ENT: Positive for: Normal ENT Inspection Neck: Positive for: Normal, Painless ROM, Supple Cardiovascular/Chest: Positive for: Regular Rate, Rhythm. Negative for: Murmur Respiratory: Positive for: Normal Breath Sounds. Negative for: Respiratory Distress Gastrointestinal/Abdominal: Positive for: Soft. Negative for: Tenderness Extremity: Positive for: Normal ROM. Negative for: Deformity Neurologic/Psych: Positive for: Alert, Oriented. Negative for: Motor/Sensory Deficits - ECG O2 Sat by Pulse Oximetry: 98 (RA) Pulse Ox Interpretation: Normal Disposition - Clinical Impression Clinical Impression: Allergic reaction, Food allergy, Lip edema - Patient ED Disposition Is Patient to be Admitted: No Counseled Patient/Family Regarding: Diagnosis, Need For Followup, Rx Given - Disposition Disposition: Routine/Home Disposition Time: 23:35 Condition: STABLE Prescriptions: DiphenhydrAMINE [Benadryl] 50 mg PO Q6 #20 cap Famotidine [Pepcid] 40 mg PO DAILY #5 tablet predniSONE [Prednisone] 40 mg PO DAILY 5 Days #10 tab Instructions: Food Allergy (ED), Allergies (ED), General Allergic Reaction (ED) Forms: [employer] (Filipino), [employer] (Vincentian) Print Language: URDU Medical Decision Making Medical Decision Makin Initial impression: allergic reaction Initial plan: * Benadryl 50mg PO * Pepcid 40mg PO * Prednisone 60mg PO 2333 Patient is stable for discharge home with prescriptions for Pepcid, Benadryl, and Prednisone. Provider advised patient to return to ED if symptoms worsen. Condition: stable Scribe Attestation: Documented by Sobia Lozano, acting as a scribe for Fay Griffiths PA-C. Provider Scribe Attestation: All medical record entries made by the Scribe were at my direction and personally dictated by me. I have reviewed the chart and agree that the record accurately reflects my personal performance of the history, physical exam, medical decision making, and the department course for this patient. I have also personally directed, reviewed, and agree with the discharge instructions and disposition.
== END 2017-12-01 00:21 | disposition home or self-care (01) ==
LOC: H.ER 20:25
DX: T78.1XXA Other adverse food reactions, not elsewhere classified, initial encounter (principal); I10 Essential (primary) hypertension; Z88.0 Allergy status to penicillin

== ENCOUNTER 2018-04-27 10:50 | Emergency (ER) | payer MEDICAID ==
[2018-04-27 10:58] VITALS: BMI 35.5
[2018-04-27 11:00] VITALS: TEMP 98.3; O2SAT 99
[2018-04-27] MEDS ORDERED: Sodium Chloride 0.9% 1,000 ML IV STA (11:42)
--- NOTE | 2018-04-27 11:43 | ED PDOC ---
Syncope/Near Syncope/Dizziness Time Seen by Provider: 04/27/18 11:08 Chief Complaint (Nursing): Dizziness/Lightheaded Chief Complaint (Provider): Dizziness History Per: Patient History/Exam Limitations: no limitations Onset/Duration Of Symptoms: Days (yesterday) Current Symptoms Are (Timing): Still Present Additional Complaint(s): Constant room spinning sensation since yesterday. No headache. Gets dyspnea on walking and weakness all over. No chest pain, abd pain, nausea, vomit, diarrhea. No fever, cough. No numbness, tingles. No incontinence, constipation. States black stool for 2 days. Past Medical History Reviewed: Nursing Documentation, Vital Signs Vital Signs: Last Vital Signs Temp 98.3 F 04/27/18 10:59 Pulse 62 04/27/18 10:59 Resp 20 04/27/18 10:59 BP 117/76 04/27/18 10:59 Pulse Ox 99 04/27/18 10:59 - Medical History PMH: Gastritis, HTN, Migraine - Family History Family History: States: Unknown Family Hx - Living Arrangements Living Arrangements: With Family - Home Medications Home Medications: Ambulatory Orders Medication Instructions Recorded Clindamycin [Cleocin] 300 mg PO BID #14 cap 01/14/16 Ibuprofen [Motrin] 600 mg PO Q6 #20 tab 01/14/16 DiphenhydrAMINE [Benadryl] 25 mg PO Q6H PRN #10 cap 12/06/16 predniSONE [Prednisone] 40 mg PO DAILY #8 tab 12/06/16 Naproxen [Naprosyn] 500 mg PO Q12 PRN #20 tablet 01/13/17 Omeprazole 20 mg PO DAILY #30 tablet. 07/14/17 Albuterol HFA [Ventolin HFA 90 1 - 2 puff IH Q4 PRN #1 inhaler 07/27/17 mcg/actuation (8 g)] Azithromycin [Zithromax] 250 mg PO DAILY #6 tab 07/27/17 Fexofenadine/Pseudoephedrine 1 each PO DAILY #14 tab.er.12h 07/27/17 [Leah-D 12 Hour Tablet] Fluticasone Nasal [Flonase] 1 actuation NS DAILY #1 spr 07/27/17 Naproxen [Naprosyn] 500 mg PO BID PRN #14 tablet 07/27/17 Acetaminophen/Butalbital/Caf 1 tab PO TID PRN #20 tab 08/05/17 [Fioricet] Omeprazole Magnesium [Prilosec Otc] 20 mg PO DAILY #30 tcp 08/05/17 DiphenhydrAMINE [Benadryl] 50 mg PO Q6 #20 cap 11/30/17 Famotidine [Pepcid] 40 mg PO DAILY #5 tablet 11/30/17 predniSONE [Prednisone] 40 mg PO DAILY 5 Days #10 tab 11/30/17 Meclizine [Meclizine*] 25 mg PO Q12 PRN #10 tab 04/27/18 - Allergies Allergies/Adverse Reactions: Allergies Allergy/AdvReac Type Severity Reaction Status Date / Time amoxicillin Allergy RASH Verified 04/27/18 11:14 Penicillins Allergy RASH Verified 04/27/18 11:14 Review of Systems ROS Statement: Except As Marked, All Systems Reviewed And Found Negative Constitutional: Positive for: Weakness Respiratory: Positive for: Shortness of Breath Neurological: Positive for: Weakness, Dizziness Physical Exam - Reviewed Nursing Documentation Reviewed: Yes Vital Signs Reviewed: Yes - Physical Exam Appears: Positive for: Non-toxic, No Acute Distress Head Exam: Positive for: ATRAUMATIC, NORMAL INSPECTION, NORMOCEPHALIC Skin: Positive for: Normal Color, Warm, DRY Eye Exam: Positive for: EOMI, Normal appearance, PERRL ENT: Positive for: Normal ENT Inspection Neck: Positive for: Normal, Painless ROM, Supple Cardiovascular/Chest: Positive for: Regular Rate, Rhythm Respiratory: Positive for: CNT, Normal Breath Sounds Gastrointestinal/Abdominal: Positive for: Normal Exam, Soft. Negative for: Tenderness Back: Positive for: Normal Inspection. Negative for: L CVA Tenderness, R CVA Tenderness Extremity: Positive for: Normal ROM. 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 Negative for: Motor/Sensory Deficits, Aphasia, Facial Droop - Laboratory Results Result Diagrams: 04/27/18 11:55 04/27/18 11:55 Interpretation Of Abn Labs: no acute - ECG ECG: Positive for: Interpreted By Me, Viewed By Me ECG Rhythm: Positive for: Normal QRS, Normal ST Segment, Sinus Rhythm O2 Sat by Pulse Oximetry: 99 Pulse Ox Interpretation: Normal - Radiology X-Ray: Read By Radiologist X-Ray Interpretation: No Acute Disease - CT Scan/US head Other Rad Studies (CT/US): Read By Radiologist Other Rad Interpretation: no acute - Progress ED Course And Treament: 1417: Stable. AAOx3. Pain free. Tolerated PO. Fu with pcp. No dyspnea, chest pain, weakness, dizziness. Ambulated with no issues. Disposition - Clinical Impression Clinical Impression: Dizziness, Weakness - Patient ED Disposition Is Patient to be Admitted: No Counseled Patient/Family Regarding: Studies Performed, Diagnosis, Need For Followup, Rx Given - Disposition Referrals: [facility] [Outside] - 04/28/18 Disposition: Routine/Home Disposition Time: 14:18 Condition: STABLE Additional Instructions: Return if not better in 3 days. Prescriptions: Meclizine [Meclizine*] 25 mg PO Q12 PRN #10 tab PRN Reason: Dizziness Instructions: Weakness (ED), Vertigo (a Type of Dizziness) Print Language: KISWAHILI
[2018-04-27 12:17] LABS: BASO % 0.8 % (0.0-2.0); EOS % 0.8 % (0.0-4.0); LYMPH % 23.9 % (20.0-40.0); MEAN CELL VOLUME 86.2 fl (81.0-99.0); MEAN CORPUSCULAR HEMOGLOBIN 29.5 pg (27.0-31.0); MEAN CORPUSCULAR HGB CONC 34.2 g/dL (33.0-37.0); MONO # 0.3 K/uL (0.0-0.8); NEUT # 2.8 K/uL (1.8-7.0); NEUT % 66.5 % (50.0-75.0); NRBC % 0.2 % (0.0-0.0); RBC 4.4 Mil/uL (3.80-5.20); RED CELL DISTRIBUTION WIDTH 14.5 % (11.5-14.5); WHITE BLOOD COUNT 4.1 K/uL (4.8-10.8)
[2018-04-27 12:24] LABS: ALB/GLOB RATIO 1.2 (1.0-2.1); ALBUMIN 4.4 g/dL (3.5-5.0); ALT/SGPT 34 U/L (9-52); AST/SGOT 32 U/L (14-36); BLOOD UREA NITROGEN 9 mg/dl (7-17); CALCIUM 10.2 mg/dL (8.4-10.2); GFR AFRICAN-AMERICAN > 60; GFR NON-AFRICAN AMERICAN > 60
[2018-04-27 12:25] LABS: PARTIAL THROMBOPLASTIN TIME 28.7 Seconds (25.6-37.1); PROTHROMBIN TIME 11.2 Seconds (9.8-13.1)
--- NOTE | 2018-04-27 12:32 | RAD ---
Date of service: 04/27/2018 HISTORY: Dizziness, weakness COMPARISON: 07/27/2017. FINDINGS: LUNGS: No active pulmonary disease. PLEURA: No significant pleural effusion identified, no pneumothorax apparent. CARDIOVASCULAR: No radiographic findings to suggest acute or significant cardiovascular disease. OSSEOUS STRUCTURES: No significant abnormalities. VISUALIZED UPPER ABDOMEN: Normal. OTHER FINDINGS: None. IMPRESSION: No active disease. No significant interval change compared to the prior examination(s).
--- NOTE | 2018-04-27 13:58 | CT ---
Date of service: 04/27/2018 PROCEDURE: CT HEAD WITHOUT CONTRAST. HISTORY: headache COMPARISON: None available. TECHNIQUE: Axial computed tomography images were obtained through the head/brain without intravenous contrast. Radiation dose: Total exam DLP = 782.76 mGy-cm. This CT exam was performed using one or more of the following dose reduction techniques: Automated exposure control, adjustment of the mA and/or kV according to patient size, and/or use of iterative reconstruction technique. FINDINGS: HEMORRHAGE: No acute parenchymal, subarachnoid or extra-axial hemorrhage. BRAIN: No mass effect or edema. No atrophy or chronic microvascular ischemic changes. VENTRICLES: Unremarkable. No hydrocephalus. CALVARIUM: Unremarkable. PARANASAL SINUSES: Mild mucosal thickening left maxillary antrum MASTOID AIR CELLS: Unremarkable as visualized. No inflammatory changes. OTHER FINDINGS: None. IMPRESSION: Normal CT of the Head.
[2018-04-27 15:01] VITALS: BP 124/75; PULSE 67; RESP 18
--- NOTE | 2018-05-01 12:15 | CARD ---
APPROVED REPORT Date of service: 04/27/2018 EKG Measurement Heart [id number] <Conclusion> Sinus bradycardia Possible Left atrial enlargement Borderline ECG
== END 2018-04-27 15:32 | disposition home or self-care (01) ==
LOC: H.ER 10:50
DX: R42 Dizziness and giddiness (principal); R53.1 Weakness; I10 Essential (primary) hypertension; Z88.0 Allergy status to penicillin
CPT/HCPCS: 70450; 71045; 80053; 81025; 84484; 85025; 85610; 85730; 93005; 96374; 99285; C9113; G0328; J7030

== ENCOUNTER 2018-05-28 12:44 | Emergency (ER) | payer MEDICAID ==
[2018-05-28 12:44] VITALS: BMI 35.5
[2018-05-28 13:02] VITALS: BP 126/66; PULSE 84; RESP 20; TEMP 98; O2SAT 97
[2018-05-28] MEDS ORDERED: DiphenhydrAMINE 50 mg/ml Inj IVP STA (13:34)
[2018-05-28] MEDS ORDERED: Sodium Chloride 0.9% 1,000 ML IV STA (13:34)
--- NOTE | 2018-05-28 13:38 | ED PDOC ---
HPI: Allergic Reaction Time Seen by Provider: 05/28/18 13:06 Chief Complaint (Nursing): Dizziness/Lightheaded Chief Complaint (Provider): Dizziness History Per: Patient History/Exam Limitations: no limitations Onset/Duration Of Symptoms: Hrs Current Symptoms Are (Timing): Still Present Possible Cause: Other Associated Symptoms: Dizziness Home/EMS Treatment: Benadryl Additional Complaint(s): 48 year old female presents to the emergency department to be evaluated for dizziness. Patient states that she used a keratin product on her hair and immediately her scalp began to burn. She reports that she took leah, ibuprofen, pepcid and benadryl 25 mg without relief. She further states that after taking these medications she began to feel dizzy and decided to present to the ED. Denies chest pain, shortness of breath, palpitations, face/neck/ throat swelling. Past Medical History Reviewed: Historical Data, Nursing Documentation, Vital Signs Vital Signs: Last Vital Signs Temp 98 F 05/28/18 12:59 Pulse 84 05/28/18 12:59 Resp 20 05/28/18 12:59 BP 126/66 05/28/18 12:59 Pulse Ox 97 05/28/18 12:59 - Medical History PMH: Gastritis, HTN, Migraine Other PMH: Chronic Sinusitis - Surgical History Surgical History: No Surg Hx - Family History Family History: States: Unknown Family Hx - Social History Current smoker - smoking cessation education provided: No Alcohol: None Drugs: Denies - Home Medications Home Medications: Ambulatory Orders Medication Instructions Recorded Clindamycin [Cleocin] 300 mg PO BID #14 cap 01/14/16 Ibuprofen [Motrin] 600 mg PO Q6 #20 tab 01/14/16 DiphenhydrAMINE [Benadryl] 25 mg PO Q6H PRN #10 cap 12/06/16 predniSONE [Prednisone] 40 mg PO DAILY #8 tab 12/06/16 Naproxen [Naprosyn] 500 mg PO Q12 PRN #20 tablet 01/13/17 Omeprazole 20 mg PO DAILY #30 tablet. 07/14/17 Albuterol HFA [Ventolin HFA 90 1 - 2 puff IH Q4 PRN #1 inhaler 07/27/17 mcg/actuation (8 g)] Azithromycin [Zithromax] 250 mg PO DAILY #6 tab 07/27/17 Fexofenadine/Pseudoephedrine 1 each PO DAILY #14 tab.er.12h 07/27/17 [Leah-D 12 Hour Tablet] Fluticasone Nasal [Flonase] 1 actuation NS DAILY #1 spr 07/27/17 Naproxen [Naprosyn] 500 mg PO BID PRN #14 tablet 07/27/17 Acetaminophen/Butalbital/Caf 1 tab PO TID PRN #20 tab 08/05/17 [Fioricet] Omeprazole Magnesium [Prilosec Otc] 20 mg PO DAILY #30 tcp 08/05/17 DiphenhydrAMINE [Benadryl] 50 mg PO Q6 #20 cap 11/30/17 Famotidine [Pepcid] 40 mg PO DAILY #5 tablet 11/30/17 predniSONE [Prednisone] 40 mg PO DAILY 5 Days #10 tab 11/30/17 Meclizine [Meclizine*] 25 mg PO Q12 PRN #10 tab 04/27/18 Meclizine [Meclizine*] 25 mg PO Q6 PRN #20 tab 05/28/18 - Allergies Allergies/Adverse Reactions: Allergies Allergy/AdvReac Type Severity Reaction Status Date / Time amoxicillin Allergy RASH Verified 05/28/18 12:58 Penicillins Allergy RASH Verified 05/28/18 12:58 Review of Systems ROS Statement: Except As Marked, All Systems Reviewed And Found Negative Constitutional: Positive for: Other (burning scalp) Cardiovascular: Negative for: Chest Pain, Palpitations Respiratory: Negative for: Shortness of Breath Musculoskeletal: Positive for: Back Pain Neurological: Positive for: Dizziness Physical Exam - Reviewed Nursing Documentation Reviewed: Yes Vital Signs Reviewed: Yes - Physical Exam Appears: Positive for: Non-toxic, No Acute Distress Head Exam: Positive for: ATRAUMATIC, NORMAL INSPECTION, NORMOCEPHALIC Skin: Positive for: Normal Color, Warm, Dry, Rash Eye Exam: Positive for: Normal appearance, EOMI, PERRL. Negative for: Nystagmus ENT: Positive for: Normal ENT Inspection. Negative for: Nasal Congestion, Tonsillar Exudate Neck: Positive for: Normal, Painless ROM, Supple Cardiovascular/Chest: Positive for: Regular Rate, Rhythm, Chest Non Tender. Negative for: Tachycardia Respiratory: Positive for: Normal Breath Sounds. Negative for: Rales, Rhonchi, Wheezing, Respiratory Distress Gastrointestinal/Abdominal: Positive for: Normal Exam, Bowel Sounds, Soft. Negative for: Tenderness, Mass, Guarding, Rebound Back: Positive for: Normal Inspection. Negative for: L CVA Tenderness, R CVA Tenderness, Vertebral Tenderness Extremity: Positive for: Normal ROM. Negative for: Tenderness, Calf Tenderness , Deformity, Swelling Neurologic/Psych: Positive for: Alert, Oriented, Gait - Laboratory Results Result Diagrams: 05/28/18 14:10 05/28/18 14:10 - ECG O2 Sat by Pulse Oximetry: 97 (RA) Pulse Ox Interpretation: Normal - Progress ED Course And Treament: 1306 Initial Impression 48 year old female presenting with reaction to product Initial plan: * CMP * Upreg * Udip * CBC * Benadryl 25 mg IVP * NS 1000 mls IV 1000 mls/hr * Urinalysis * Reevaluation On review of old note patient was seen here on April 27 for same complaint ( dizziness/vertigo), CT head negative. Documented by Alexandra Esquivel acting as a scribe for Nola Briscoe MD. All medical record entries made by the Scribe were at my direction and personally dictated by me. I have reviewed the chart and agree that the record accurately reflects my personal performance of the history, physical exam, medical decision making, and the department course for this patient. I have also personally directed, reviewed, and agree with the discharge instructions and disposition. Disposition - Clinical Impression Clinical Impression: Vertigo, Irritant contact dermatitis due to chemical - Disposition Disposition: Routine/Home Disposition Time: 15:46 Condition: IMPROVED Prescriptions: Meclizine [Meclizine*] 25 mg PO Q6 PRN #20 tab PRN Reason: Dizziness Instructions: Vertigo (a Type of Dizziness), Chemical Exposure to the Skin (DC) Forms: [employer] (Malagasy) Print Language: GIBRALTARIAN
[2018-05-28] MEDS ORDERED: DiphenhydrAMINE 50 mg/ml Inj ONE (13:49)
[2018-05-28 14:24] LABS: BASO # 0.1 K/uL (0.0-0.2); BASO % 1.6 % (0.0-2.0); EOS % 0.5 % (0.0-4.0); HEMOGLOBIN 12.6 g/dL (12.0-16.0); LYMPH # 1.2 K/uL (1.0-4.3); LYMPH % 20.4 % (20.0-40.0); MEAN CELL VOLUME 87.4 fl (81.0-99.0); MEAN CORPUSCULAR HEMOGLOBIN 29.1 pg (27.0-31.0); MEAN CORPUSCULAR HGB CONC 33.3 g/dL (33.0-37.0); MEAN PLATELET VOLUME 10.1 fl (7.2-11.7); MONO # 0.5 K/uL (0.0-0.8); MONO % 8.9 % (0.0-10.0); NEUT % 68.6 % (50.0-75.0); RBC 4.32 Mil/uL (3.80-5.20); RED CELL DISTRIBUTION WIDTH 14.4 % (11.5-14.5); WHITE BLOOD COUNT 5.8 K/uL (4.8-10.8)
[2018-05-28 14:26] LABS: URINE BILIRUBIN NEGATIVE (NEGATIVE); URINE BLOOD NEGATIVE (NEGATIVE); URINE CLARITY CLEAR (Clear); URINE COLOR STRAW (YELLOW); URINE GLUCOSE (UA) NEG (Normal); URINE LEUKOCYTE ESTERASE NEG Leu/uL (Negative); URINE PROTEIN NEGATIVE (NEGATIVE); URINE UROBILINOGEN 0.2-1.0 mg/dL (0.2-1.0)
[2018-05-28 14:34] LABS: ALB/GLOB RATIO 1.4 (1.0-2.1); ALBUMIN 4.4 g/dL (3.5-5.0); ALT/SGPT 37 U/L (9-52); AST/SGOT 34 U/L (14-36); BLOOD UREA NITROGEN 12 mg/dl (7-17); CALCIUM 9.8 mg/dL (8.4-10.2); GFR AFRICAN-AMERICAN > 60; GFR NON-AFRICAN AMERICAN > 60
== END 2018-05-28 16:17 | disposition home or self-care (01) ==
LOC: H.ER 12:44
DX: R42 Dizziness and giddiness (principal); T78.40XA Allergy, unspecified, initial encounter; I10 Essential (primary) hypertension; Z88.0 Allergy status to penicillin
CPT/HCPCS: 80053; 81003; 85025; 96374; 99285; J1200; J7030

== ENCOUNTER 2018-05-30 15:20 | Emergency (ER) | payer MEDICAID ==
[2018-05-30 15:21] VITALS: BMI 35.5
[2018-05-30 15:28] VITALS: RESP 16; O2SAT 95
--- NOTE | 2018-05-30 16:22 | ED PDOC ---
HPI: Back Time Seen by Provider: 05/30/18 15:29 Chief Complaint (Nursing): Headache Chief Complaint (Provider): Upper Back Pain History Per: Patient History/Exam Limitations: no limitations Onset/Duration Of Symptoms: Hrs Current Symptoms Are (Timing): Still Present Quality Of Discomfort: Other (tightness) Associated Symptoms: None Exacerbating Factor(s): Movement Additional Complaint(s): 48 year old female presents to the emergency department for evaluation of upper back pain which radiates into the neck. Patient states that the pain began this morning when she woke up. She describes the pain as a tightness and states that it worsens with movement. she reports that she initially attributed the pain to her asthma and took albuterol this morning with no relief. Denies history of fall, trauma, back injury. Also denies fevers, chills, nausea, vomiting, diarrhea, abdominal pain, chest pain, cough, shortness of breath, prolonged immobility, calf tenderness. L.M.P: 4-5 months ago (perimenopausal) PMD: Harsha Peng - Risk Factors AAA Risk Factors: Pos: Older Than 49 Years Of Age, Hypertension Past Medical History Reviewed: Historical Data, Nursing Documentation, Vital Signs Vital Signs: Last Vital Signs Temp 98.0 F 05/30/18 15:26 Pulse 79 05/30/18 15:26 Resp 16 05/30/18 15:26 BP 146/93 H 05/30/18 15:26 Pulse Ox 95 05/30/18 15:26 - Medical History PMH: Asthma, Gastritis, HTN, Migraine Other PMH: Acid reflux , Sinusitis - Surgical History Surgical History: No Surg Hx - Family History Family History: States: Unknown Family Hx - Social History Current smoker - smoking cessation education provided: No Alcohol: None Drugs: Denies - Home Medications Home Medications: Ambulatory Orders Medication Instructions Recorded Clindamycin [Cleocin] 300 mg PO BID #14 cap 01/14/16 Ibuprofen [Motrin] 600 mg PO Q6 #20 tab 01/14/16 DiphenhydrAMINE [Benadryl] 25 mg PO Q6H PRN #10 cap 12/06/16 predniSONE [Prednisone] 40 mg PO DAILY #8 tab 12/06/16 Naproxen [Naprosyn] 500 mg PO Q12 PRN #20 tablet 01/13/17 Omeprazole 20 mg PO DAILY #30 tablet. 07/14/17 Albuterol HFA [Ventolin HFA 90 1 - 2 puff IH Q4 PRN #1 inhaler 07/27/17 mcg/actuation (8 g)] Azithromycin [Zithromax] 250 mg PO DAILY #6 tab 07/27/17 Fexofenadine/Pseudoephedrine 1 each PO DAILY #14 tab.er.12h 07/27/17 [Leah-D 12 Hour Tablet] Fluticasone Nasal [Flonase] 1 actuation NS DAILY #1 spr 07/27/17 Naproxen [Naprosyn] 500 mg PO BID PRN #14 tablet 07/27/17 Acetaminophen/Butalbital/Caf 1 tab PO TID PRN #20 tab 08/05/17 [Fioricet] Omeprazole Magnesium [Prilosec Otc] 20 mg PO DAILY #30 tcp 08/05/17 DiphenhydrAMINE [Benadryl] 50 mg PO Q6 #20 cap 11/30/17 Famotidine [Pepcid] 40 mg PO DAILY #5 tablet 11/30/17 predniSONE [Prednisone] 40 mg PO DAILY 5 Days #10 tab 11/30/17 Meclizine [Meclizine*] 25 mg PO Q12 PRN #10 tab 04/27/18 Meclizine [Meclizine*] 25 mg PO Q6 PRN #20 tab 05/28/18 Methocarbamol [Robaxin-750] 750 mg PO Q8 PRN #12 tablet 05/30/18 Naproxen 500 mg PO BID PRN #20 tab 05/30/18 - Allergies Allergies/Adverse Reactions: Allergies Allergy/AdvReac Type Severity Reaction Status Date / Time amoxicillin Allergy RASH Verified 05/28/18 12:58 Penicillins Allergy RASH Verified 05/28/18 12:58 Review of Systems Constitutional: Negative for: Fever, Chills Cardiovascular: Negative for: Chest Pain Respiratory: Negative for: Cough, Shortness of Breath Gastrointestinal: Negative for: Nausea, Vomiting, Abdominal Pain, Diarrhea Musculoskeletal: Positive for: Back Pain (upper) Physical Exam - Reviewed Nursing Documentation Reviewed: Yes Vital Signs Reviewed: Yes - Physical Exam Comments: GENERAL APPEARANCE: Patient is awake, alert, oriented x 3, in no acute distress. SKIN: Warm, dry; (-) cyanosis. EYES: (-) conjunctival pallor. ENMT: Mucous membranes moist. NECK: (-) tenderness, (-) stiffness, (-) lymphadenopathy. CHEST AND RESPIRATORY: (-) rales, (-) rhonchi, (-) wheezes; breath sounds equal bilaterally, respirations non labored . HEART AND CARDIOVASCULAR: (-) irregularity; (-) murmur, (-) gallop. ABDOMEN AND GI: Soft; (-) tenderness; (-) palpable mass. BACK: (+) parathoraic tenderness, (-) mild spasm, (-) direct bony tenderness, ( -) deformity. EXTREMITIES: (-) deformity. Distal pulses good bilaterally. NEURO AND PSYCH: Mental status as above. Intact sensation bilaterally; normal strength in extension of the knees, plantar and dorsiflexion of the toes. DTRs symmetric. - Laboratory Results Urine POC: Negative Urine dip results: Negative for: Leukocyte Esterase, Blood, Nitrate, Ketones, Glucose, Bilirubin, Protein - ECG O2 Sat by Pulse Oximetry: 95 (RA) Pulse Ox Interpretation: Normal Medical Decision Making Medical Decision Makin Initial Impression 48 year old female presenting with acute back pain, likely muscle spasm Initial Plan: * Upreg * Udip * Flexeril 10 mg PO (Not driving home) * Toradol 30 mg IM * Reevaluation 1628 Udip reviewed and grossly unremarkable. Upreg: Negative. 1720 Repeat BP: 138/83 Repeat HR: 75 On re-evaluation, patient reports improvement of symptoms. On exam, patient remains AAOx3, in no acute distress. On exam, neck is supple, lungs CTA, cardiac RRR, abdomen is soft and non-tender, neuro exam shows no focal findings. VSS, stable for discharge. Diagnostic results d/w the patient in great detail. Dx of acute back pain, muscle spasm d/w the patient. Based on history, exam and diagnostic results plan will be for discharge and outpatient follow up. Advised to follow up with primary care physician in 1-2 days without fail. Advised to take medication as prescribed. Return to the emergency room at any time for any new or worsening symptoms. Patient states she fully agrees with and understands discharge instructions. States that she agrees with the plan and disposition. Verbalized and repeated discharge instructions and plan. I have given the patient opportunity to ask any additional questions. Documented by Alexandra Esquivel acting as a scribe for Fay Griffiths PA-C. All medical record entries made by the Scribe were at my direction and personally dictated by me. I have reviewed the chart and agree that the record accurately reflects my personal performance of the history, physical exam, medical decision making, and the department course for this patient. I have also personally directed, reviewed, and agree with the discharge instructions and disposition. Disposition - Clinical Impression Clinical Impression: Back pain, Muscle spasm - Patient ED Disposition Is Patient to be Admitted: No Counseled Patient/Family Regarding: Studies Performed, Diagnosis, Need For Followup, Rx Given - Disposition Referrals: Harsha Hunt APN [Advanced Practice Nurse] - Disposition: Routine/Home Disposition Time: 17:21 Condition: IMPROVED Additional Instructions: La atencin mdica de emergencia que recibi hoy estaba dirigida a milana sntomas agudos. Si le prescribieron algn medicamento, llnelo y tome segn las indicaciones. Milana sntomas pueden tardar varios christine en resolverse. Regrese al Departamento de Emergencia si milana sntomas empeoran, no mejoran o si tiene alg n otro problema. Comunquese con delgadillo mdico en 2 christine para shahrzad reevaluacin y seguimiento / o llame a lin de los mdicos / clnicas a los que elmore referido y que figura en el formulario de Informacin de visitas del paciente que se incluye en delgadillo paquete de katey. Traiga todos los documentos que recibi al momento del katey junto con los medicamentos que est tomando en delgadillo visita de seguimiento. Nuestro tratamiento no puede reemplazar la atencin mdica en curso por parte de un proveedor de atencin primaria (PCP) fuera del departamento de emergencias. Prescriptions: Methocarbamol [Robaxin-750] 750 mg PO Q8 PRN #12 tablet PRN Reason: Muscle Spasm Naproxen 500 mg PO BID PRN #20 tab PRN Reason: Pain, Moderate (4-7) Instructions: Upper Back Pain, Muscle Spasms (DC) Forms: [employer] (Djiboutian) Print Language: NORWEGIAN - POA Present On Arrival: None
[2018-05-30 17:27] VITALS: BP 138/83; PULSE 75; TEMP 98.8
== END 2018-05-30 17:26 | disposition home or self-care (01) ==
LOC: H.ER 15:20
DX: M54.6 Pain in thoracic spine (principal); M62.838 Other muscle spasm; I10 Essential (primary) hypertension; J45.909 Unspecified asthma, uncomplicated; Z88.0 Allergy status to penicillin
CPT/HCPCS: 96372; 99285; J1885

== ENCOUNTER 2018-07-17 12:17 | Emergency (ER) | payer MEDICAID ==
[2018-07-17 12:17] VITALS: BMI 35.5
[2018-07-17 12:25] VITALS: TEMP 98.3; O2SAT 99
--- NOTE | 2018-07-17 13:06 | ED PDOC ---
HPI: Headache Chief Complaint (Provider): headache/chest pain/cough History Per: Patient (48 y/o female h/o HTN/chronic sinusitis/asthma here with complaint of uri/nasalcongestion x 3 days associated with cough and chest pain associated with coughing. Notes headache/back pain as well not improved with pulmicort/nasal spray used at home.) <Carissa Lara - Last Filed: 07/17/18 15:36> <Fay Wilson - Last Filed: 07/22/18 11:57> Time Seen by Provider: 07/17/18 13:02 Chief Complaint (Nursing): Headache Past Medical History Reviewed: Historical Data, Nursing Documentation, Vital Signs Vital Signs: Last Vital Signs Temp 98.3 F 07/17/18 12:23 Pulse 67 07/17/18 12:23 Resp 20 07/17/18 12:23 BP 117/68 07/17/18 12:23 Pulse Ox 99 07/17/18 12:23 - Medical History PMH: Asthma, Gastritis, HTN, Migraine - Family History Family History: States: Unknown Family Hx <Carissa Lara - Last Filed: 07/17/18 15:36> Vital Signs: Last Vital Signs Temp 98.3 F 07/17/18 12:23 Pulse 70 07/17/18 17:10 Resp 18 07/17/18 17:10 BP 110/70 07/17/18 17:10 Pulse Ox 99 07/17/18 17:10 <Fay Wilson - Last Filed: 07/22/18 11:57> - Home Medications Home Medications: Ambulatory Orders Medication Instructions Recorded Naproxen [Naprosyn] 500 mg PO BID PRN #14 tablet 07/27/17 predniSONE [Prednisone] 40 mg PO DAILY 5 Days #10 tab 11/30/17 RX: Meclizine [Meclizine*] 25 mg PO Q6 PRN #20 tab 05/28/18 Cetirizine HCl [Zyrtec] 10 mg PO DAILY #14 tab.rapdis 07/17/18 RX: predniSONE [predniSONE Tab] 2 tab PO DAILY #10 tab 07/17/18 Albuterol Sulfate [Ventolin Hfa] 2 puff IH Q4 PRN 07/20/18 Azelastine HCl [Astepro] 1 spray NS HS 07/20/18 Budesonide [Rhinocort Allergy] 1 spray NS QAM 07/20/18 Lisinopril/Hydrochlorothiazide 1 tab PO DAILY 07/20/18 [Lisinopril-Hctz 10-12.5 mg Tab] Montelukast [Singulair] 10 mg PO DAILY 07/20/18 RX: Fluticasone Nasal [Flonase] 1 actuation INH BID 07/20/18 RX: Omeprazole 40 mg PO DAILY 07/20/18 - Allergies Allergies/Adverse Reactions: Allergies Allergy/AdvReac Type Severity Reaction Status Date / Time amoxicillin Allergy RASH Verified 07/20/18 14:09 Penicillins Allergy RASH Verified 07/20/18 14:09 Review of Systems ROS Statement: Except As Marked, All Systems Reviewed And Found Negative <Carissa Lara - Last Filed: 07/17/18 15:36> Physical Exam - Reviewed Nursing Documentation Reviewed: Yes Vital Signs Reviewed: Yes - Physical Exam Appears: Positive for: Well, Non-toxic, No Acute Distress Head Exam: Positive for: ATRAUMATIC, NORMAL INSPECTION, NORMOCEPHALIC Skin: Positive for: Normal Color, Warm, DRY Eye Exam: Positive for: EOMI, Normal appearance, PERRL ENT: Positive for: Nasal Congestion Neck: Positive for: Normal, Painless ROM Cardiovascular/Chest: Positive for: Regular Rate, Rhythm Respiratory: Positive for: CNT, Normal Breath Sounds Gastrointestinal/Abdominal: Positive for: Normal Exam, Soft Back: Positive for: Normal Inspection Extremity: Positive for: Normal ROM Neurologic/Psych: Positive for: Alert, Oriented <Carissa Lara - Last Filed: 07/17/18 15:36> - ECG O2 Sat by Pulse Oximetry: 99 - Progress ED Course And Treament: toradol 30 mg IM x 1 dose cxr: no infiltrate <Carissa Lara - Last Filed: 07/17/18 15:36> Disposition - Patient ED Disposition Is Patient to be Admitted: No - Disposition Disposition: Routine/Home Disposition Time: 13:04 <Carissa Lara - Last Filed: 07/17/18 15:36> <Fay Wilson - Last Filed: 07/22/18 11:57> - Clinical Impression Clinical Impression: Sinusitis - Disposition Condition: FAIR Additional Instructions: PLEASE PURCHASE RAFFAELE POT/NASAL SALINE RINSE FROM PHARMACY Prescriptions: Cetirizine HCl [Zyrtec] 10 mg PO DAILY #14 tab.rapdis RX: predniSONE [predniSONE Tab] 2 tab PO DAILY #10 tab Instructions: Sinusitis, Adult (DC) Addendum Addendum: 07/22/18 11:56 Reviewed chart and agree with assessment and plan. <Fay Wilson - Last Filed: 07/22/18 11:57>
--- NOTE | 2018-07-17 15:47 | RAD ---
Date of service: 07/17/2018 HISTORY: Cough. COMPARISON: 06/23/2018. TECHNIQUE: Chest PA and lateral FINDINGS: LUNGS: No active pulmonary disease. PLEURA: No significant pleural effusion identified. No pneumothorax apparent. CARDIOVASCULAR: No radiographic findings to suggest acute or significant cardiovascular disease. OSSEOUS STRUCTURES: No significant abnormalities. VISUALIZED UPPER ABDOMEN: Normal. OTHER FINDINGS: None. IMPRESSION: No active disease. No significant interval change compared to the prior examination(s).
[2018-07-17] MEDS ORDERED: Albuterol-Ipratrop 3 mg / 0.5 (3 ml) UD INH STA (16:18)
[2018-07-17] MEDS ORDERED: Albuterol-Ipratrop 3 mg / 0.5 (3 ml) UD ONE (16:21)
[2018-07-17 17:56] VITALS: BP 110/70; PULSE 70; RESP 18
== END 2018-07-17 17:10 | disposition home or self-care (01) ==
LOC: H.ER 12:17
DX: J32.9 Chronic sinusitis, unspecified (principal); I10 Essential (primary) hypertension; J45.909 Unspecified asthma, uncomplicated; Z88.0 Allergy status to penicillin
CPT/HCPCS: 71046; 81025; 94640; 96372; 99285; J1885

== ENCOUNTER 2018-07-20 14:03 | Emergency (ER) | payer MEDICAID ==
[2018-07-20 14:04] VITALS: BMI 35.5
--- NOTE | 2018-07-20 14:28 | ED PDOC ---
HPI: General Adult Time Seen by Provider: 07/20/18 14:08 Chief Complaint (Nursing): Weakness/Neurological Deficit Chief Complaint (Provider): Numbness, weakness History Per: Patient History/Exam Limitations: no limitations Onset/Duration Of Symptoms: Hrs (3) Have you had recent travel within the past 21 days to any of the following countries: [place], [place], [place] or [place]?: No Current Symptoms Are (Timing): Better Additional History Per: Patient Additional Complaint(s): 48yo female, history of hypertension and asthma, comes to ER via ambulance for evaluation of numbness to her tongue, mouth and throat x 3 hours. She also reports developing numbness and weakness in her calves, bilateral feet and arms. Patient reports mild facial pain and neck pain as well; she reports within the past 3 hours, her symptoms have been improving. Otherwise, denies any headache, vision changes, chest pain, shortness of breath, abdominal pain, nausea, vomiting, diarrhea, or urinary symptoms. PMD: [facility] NIHSS Stroke Scale - Date/Time Evaluation Performed Date Performed: 07/20/18 Time Performed: 14:17 When Was NIHSS Performed: Baseline - How Severe is the Stroke Level of Consciousness: 0=Alert Past Medical History Reviewed: Historical Data, Nursing Documentation, Vital Signs Vital Signs: Last Vital Signs Temp 98.8 F 07/20/18 14:06 Pulse 75 07/20/18 14:06 Resp 18 07/20/18 14:06 BP 130/91 H 07/20/18 14:06 Pulse Ox 99 07/20/18 14:06 - Medical History PMH: Asthma, Gastritis, HTN, Migraine - Surgical History Surgical History: No Surg Hx - Family History Family History: States: Unknown Family Hx - Home Medications Home Medications: Ambulatory Orders Medication Instructions Recorded Naproxen [Naprosyn] 500 mg PO BID PRN #14 tablet 07/27/17 predniSONE [Prednisone] 40 mg PO DAILY 5 Days #10 tab 11/30/17 Meclizine [Meclizine*] 25 mg PO Q6 PRN #20 tab 05/28/18 Cetirizine HCl [Zyrtec] 10 mg PO DAILY #14 tab.rapdis 07/17/18 predniSONE [predniSONE Tab] 2 tab PO DAILY #10 tab 07/17/18 Albuterol Sulfate [Ventolin Hfa] 2 puff IH Q4 PRN 07/20/18 Azelastine HCl [Astepro] 1 spray NS HS 07/20/18 Budesonide [Rhinocort Allergy] 1 spray NS QAM 07/20/18 Fluticasone Nasal [Flonase] 1 actuation INH BID 07/20/18 Lisinopril/Hydrochlorothiazide 1 tab PO DAILY 07/20/18 [Lisinopril-Hctz 10-12.5 mg Tab] Montelukast [Singulair] 10 mg PO DAILY 07/20/18 Omeprazole 40 mg PO DAILY 07/20/18 - Allergies Allergies/Adverse Reactions: Allergies Allergy/AdvReac Type Severity Reaction Status Date / Time amoxicillin Allergy RASH Verified 07/20/18 14:09 Penicillins Allergy RASH Verified 07/20/18 14:09 Review of Systems ROS Statement: Except As Marked, All Systems Reviewed And Found Negative Constitutional: Negative for: Fever, Chills Eyes: Negative for: Vision Change Cardiovascular: Negative for: Chest Pain Respiratory: Negative for: Shortness of Breath Gastrointestinal: Negative for: Nausea, Vomiting, Abdominal Pain Genitourinary Female: Negative for: Dysuria Skin: Negative for: Rash Neurological: Positive for: Weakness, Numbness ("numbness to mouth, throat, bilateral feet and calves"). Negative for: Headache Physical Exam - Reviewed Nursing Documentation Reviewed: Yes Vital Signs Reviewed: Yes - Physical Exam Appears: Positive for: Non-toxic, No Acute Distress Head Exam: Positive for: ATRAUMATIC, NORMAL INSPECTION, NORMOCEPHALIC Skin: Positive for: Normal Color, Warm, DRY Eye Exam: Positive for: EOMI, Normal appearance, PERRL ENT: Positive for: Normal ENT Inspection. Negative for: Pharyngeal Erythema, Tonsillar Exudate, Tonsillar Swelling Neck: Positive for: Normal, Painless ROM, Supple Cardiovascular/Chest: Positive for: Regular Rate, Rhythm, Chest Non Tender Respiratory: Positive for: CNT, Normal Breath Sounds Gastrointestinal/Abdominal: Positive for: Normal Exam, Soft Back: Positive for: Normal Inspection. Negative for: L CVA Tenderness, R CVA Tenderness, Vertebral Tenderness Extremity: Positive for: Normal ROM, Other (4/5 extension forester strength; 5/5 motor strength ). Negative for: Pedal Edema, Deformity Neurologic/Psych: Positive for: Alert, Oriented - Laboratory Results Result Diagrams: 07/20/18 14:51 07/20/18 14:51 Interpretation Of Abn Labs: no acute - ECG ECG: Positive for: Interpreted By Me, Viewed By Me ECG Rhythm: Positive for: Normal QRS, Normal ST Segment, Sinus Rhythm O2 Sat by Pulse Oximetry: 99 (RA) Pulse Ox Interpretation: Normal - Radiology X-Ray: Read By Radiologist X-Ray Interpretation: No Acute Disease - CT Scan/US ct Other Rad Studies (CT/US): Read By Radiologist Other Rad Interpretation: no acute - Progress ED Course And Treament: 1858: Pt. stable. AAOx3. Pain free. Tolerated PO. Fu with pcp. Medical Decision Making Medical Decision Making: Impression: Weakness Plan: * Labs * CT Head w/o contrast * EKG * Chest x-ray * IV FLuids 15:02 CT Head FINDINGS: HEMORRHAGE: No intracranial hemorrhage. BRAIN: No mass effect or edema. No atrophy or chronic microvascular ischemic changes. VENTRICLES: Unremarkable. No hydrocephalus. CALVARIUM: Unremarkable. PARANASAL SINUSES: Unremarkable as visualized. No significant inflammatory changes. MASTOID AIR CELLS: Unremarkable as visualized. No inflammatory changes. OTHER FINDINGS: None. IMPRESSION: Normal CT of the Head. No intracranial mass, hemorrhage or evidence of acute infarct Scribe Attestation: Documented by Beena Bartlett, acting as a scribe for Chao Maya MD. Provider Scribe Attestation: All medical record entries made by the Scribe were at my direction and personally dictated by me. I have reviewed the chart and agree that the record accurately reflects my personal performance of the history, physical exam, medical decision making, and the department course for this patient. I have also personally directed, reviewed, and agree with the discharge instructions and disposition. Disposition - Clinical Impression Clinical Impression: Paresthesia - Patient ED Disposition Is Patient to be Admitted: No Counseled Patient/Family Regarding: Studies Performed, Diagnosis, Need For Followup - Disposition Referrals: [facility] [Outside] - 07/24/18 Disposition: Routine/Home Disposition Time: 18:58 Condition: STABLE Additional Instructions: Return if not better in 3 days. Instructions: Paresthesias (DC) Print Language: MAURITIAN
[2018-07-20] MEDS ORDERED: Sodium Chloride 0.9% 1,000 ML IV SCH (14:30)
--- NOTE | 2018-07-20 15:02 | CT ---
Date of service: 07/20/2018 PROCEDURE: CT HEAD WITHOUT CONTRAST. HISTORY: paresthesias eval COMPARISON: 04/27/2018 TECHNIQUE: Axial computed tomography images were obtained through the head/brain without intravenous contrast. Radiation dose: Total exam DLP = 825.75 mGy-cm. This CT exam was performed using one or more of the following dose reduction techniques: Automated exposure control, adjustment of the mA and/or kV according to patient size, and/or use of iterative reconstruction technique. FINDINGS: HEMORRHAGE: No intracranial hemorrhage. BRAIN: No mass effect or edema. No atrophy or chronic microvascular ischemic changes. VENTRICLES: Unremarkable. No hydrocephalus. CALVARIUM: Unremarkable. PARANASAL SINUSES: Unremarkable as visualized. No significant inflammatory changes. MASTOID AIR CELLS: Unremarkable as visualized. No inflammatory changes. OTHER FINDINGS: None. IMPRESSION: Normal CT of the Head. No intracranial mass, hemorrhage or evidence of acute infarct
[2018-07-20 15:08] VITALS: RESP 19; TEMP 97
[2018-07-20 15:08] LABS: BLOOD UREA NITROGEN 11 mg/dl (7-17); GFR NON-AFRICAN AMERICAN > 60; HDL CHOLESTEROL 54 MG/DL (30-70)
[2018-07-20 15:09] LABS: BASO % 0.4 % (0.0-2.0); HEMOGLOBIN 13.1 g/dL (12.0-16.0); LYMPH # 0.8 K/uL (1.0-4.3); LYMPH % 12.1 % (20.0-40.0); MEAN CELL VOLUME 87.2 fl (81.0-99.0); MEAN CORPUSCULAR HEMOGLOBIN 29.3 pg (27.0-31.0); MEAN CORPUSCULAR HGB CONC 33.6 g/dL (33.0-37.0); MEAN PLATELET VOLUME 10.2 fl (7.2-11.7); MONO # 0.2 K/uL (0.0-0.8); MONO % 3.8 % (0.0-10.0); NEUT # 5.5 K/uL (1.8-7.0); NEUT % 83.7 % (50.0-75.0); NRBC % 0.1 % (0.0-0.0); RBC 4.47 Mil/uL (3.80-5.20); RED CELL DISTRIBUTION WIDTH 14.1 % (11.5-14.5); WHITE BLOOD COUNT 6.5 K/uL (4.8-10.8)
--- NOTE | 2018-07-20 15:09 | RAD ---
Date of service: 07/20/2018 HISTORY: paresthesias eval COMPARISON: 07/17/2018 FINDINGS: LUNGS: No active pulmonary disease. PLEURA: No significant pleural effusion identified, no pneumothorax apparent. CARDIOVASCULAR: No radiographic findings to suggest acute or significant cardiovascular disease. OSSEOUS STRUCTURES: No significant abnormalities. VISUALIZED UPPER ABDOMEN: Normal. OTHER FINDINGS: None. IMPRESSION: No active disease. No significant interval change compared to the prior examination(s).
[2018-07-20 15:13] LABS: PROTHROMBIN TIME 11.5 Seconds (9.8-13.1)
[2018-07-20 15:16] LABS: PARTIAL THROMBOPLASTIN TIME 29.5 Seconds (25.6-37.1)
[2018-07-20 15:19] LABS: LDL CHOLESTEROL 68 mg/dL (0-129)
[2018-07-20 15:23] LABS: ALB/GLOB RATIO 1.3 (1.0-2.1); ALBUMIN 4.9 g/dL (3.5-5.0); ALT/SGPT 28 U/L (9-52); AST/SGOT 38 U/L (14-36)
[2018-07-20 18:59] VITALS: O2SAT 99
[2018-07-20 19:53] VITALS: BP 123/78; PULSE 78
--- NOTE | 2018-07-21 14:27 | CARD ---
APPROVED REPORT Date of service: 07/20/2018 EKG Measurement Heart [id number] <Conclusion> Normal sinus rhythm Normal ECG
== END 2018-07-20 19:42 | disposition home or self-care (01) ==
LOC: H.ER 14:03
DX: R20.2 Paresthesia of skin (principal); M62.81 Muscle weakness (generalized); I10 Essential (primary) hypertension; J45.909 Unspecified asthma, uncomplicated; Z88.0 Allergy status to penicillin
CPT/HCPCS: 70450; 71045; 80053; 80061; 81025; 82948; 83036; 84484; 85025; 85610; 85730; 86850; 86900; 93005; 99285; J7030

== ENCOUNTER 2018-12-05 23:40 | Emergency (ER) | payer MEDICAID ==
[2018-12-05 23:40] VITALS: BMI 35.5
[2018-12-05 23:57] VITALS: RESP 18
[2018-12-06] MEDS ORDERED: Sodium Chloride 0.9% 1,000 ML IV STA (01:09)
--- NOTE | 2018-12-06 02:08 | ED PDOC ---
HPI: SOB/CHF/COPD Time Seen by Provider: 12/06/18 00:36 Chief Complaint (Nursing): Shortness Of Breath Chief Complaint (Provider): Chest Pain History Per: Patient History/Exam Limitations: no limitations Onset/Duration Of Symptoms: Days (x4) Additional Complaint(s): 48 y/o female with history of gastritis, HTN, and chronic sinus problems, presents to the ED with fever, left sided chest pain, and left sided back pain. Patient reports she woke up last night with bilateral cramping of her hands with left being worse than right. States she doesn't have shortness of breath. Patient states she is not sure if she has fever but woke up with sweating and chills. Patient has surgeries for left breast fibroma and uterine fibroids. Patient states symptoms have been going for x4 days but worsening throughout today. Denies cough, vomiting, and diarrhea. Past Medical History Reviewed: Historical Data, Nursing Documentation, Vital Signs Vital Signs: Last Vital Signs Temp 98.2 F 12/05/18 23:53 Pulse 73 12/05/18 23:53 Resp 18 12/05/18 23:53 BP 128/82 12/05/18 23:53 Pulse Ox 100 12/05/18 23:53 - Medical History PMH: Asthma, Back Problems, Gastritis, HTN, Migraine, TIA - Family History Family History: States: Unknown Family Hx - Home Medications Home Medications: Ambulatory Orders Medication Instructions Recorded Naproxen [Naprosyn] 500 mg PO BID PRN #14 tablet 07/27/17 predniSONE [Prednisone] 40 mg PO DAILY 5 Days #10 tab 11/30/17 RX: Meclizine [Meclizine*] 25 mg PO Q6 PRN #20 tab 05/28/18 Cetirizine HCl [Zyrtec] 10 mg PO DAILY #14 tab.rapdis 07/17/18 RX: predniSONE [predniSONE Tab] 2 tab PO DAILY #10 tab 07/17/18 Albuterol Sulfate [Ventolin Hfa] 2 puff IH Q4 PRN 07/20/18 Azelastine HCl [Astepro] 1 spray NS HS 07/20/18 Budesonide [Rhinocort Allergy] 1 spray NS QAM 07/20/18 Lisinopril/Hydrochlorothiazide 1 tab PO DAILY 10/04/18 [Lisinopril-Hctz 10-12.5 mg Tab] Montelukast [Singulair] 10 mg PO DAILY 07/20/18 RX: Fluticasone Nasal [Flonase] 1 actuation INH BID 07/20/18 RX: Omeprazole 40 mg PO DAILY 07/20/18 - Allergies Allergies/Adverse Reactions: Allergies Allergy/AdvReac Type Severity Reaction Status Date / Time amoxicillin Allergy RASH Verified 12/05/18 23:53 Penicillins Allergy RASH Verified 12/05/18 23:53 Review of Systems ROS Statement: Except As Marked, All Systems Reviewed And Found Negative Constitutional: Positive for: Fever, Chills, Sweats Cardiovascular: Positive for: Chest Pain Respiratory: Negative for: Cough, Shortness of Breath Gastrointestinal: Negative for: Vomiting, Diarrhea Musculoskeletal: Positive for: Back Pain Physical Exam - Reviewed Nursing Documentation Reviewed: Yes Vital Signs Reviewed: Yes - Physical Exam Appears: Positive for: No Acute Distress, Uncomfortable Head Exam: Positive for: ATRAUMATIC, NORMAL INSPECTION, NORMOCEPHALIC Skin: Positive for: Normal Color, Warm, DRY Eye Exam: Positive for: EOMI, Normal appearance, PERRL ENT: Positive for: Normal ENT Inspection Neck: Positive for: Normal, Painless ROM Cardiovascular/Chest: Positive for: Regular Rate, Rhythm. Negative for: Murmur Respiratory: Positive for: Normal Breath Sounds. Negative for: Respiratory Distress Gastrointestinal/Abdominal: Positive for: Normal Exam, Soft. Negative for: Tenderness Back: Positive for: Normal Inspection Extremity: Positive for: Normal ROM. Negative for: Pedal Edema, Deformity Neurologic/Psych: Positive for: Alert, Oriented. Negative for: Motor/Sensory Deficits - Laboratory Results Result Diagrams: 12/06/18 01:10 12/06/18 01:10 - ECG O2 Sat by Pulse Oximetry: 100 (RA) Pulse Ox Interpretation: Normal Medical Decision Making Medical Decision Making: Time: 01:00 MDM: Workup for symptoms consistent with viral syndrome Plan: * IV Fluids * Toradol * Basic labs * CXR * Reassess 03:15 Patient is comfortable at this time and labs are unremarkable. Chart review indicates patient has history of radiculopathy. Patient is to be discharged. She will follow up with her PMD. --- Scribe Attestation: Documented by Anthony Mensah acting as a scribe for Fay Wilson MD. Provider Scribe Attestation: All medical record entries made by the Scribe were at my direction and personally dictated by me. I have reviewed the chart and agree that the record accurately reflects my personal performance of the history, physical exam, medical decision making, and the department course for this patient. I have also personally directed, reviewed, and agree with the discharge instructions and disposition. Disposition - Clinical Impression Clinical Impression: Viral syndrome - Disposition Disposition: Routine/Home Disposition Time: 03:15 Condition: IMPROVED Additional Instructions: Take Tylenol or Motrin for body aches and pain. Follow up with primary medical doctor. Increase rest and drink plenty of water while symptoms last. Instructions: Cough, Runny Nose, and the Common Cold (DC), Viral Syndrome (DC) Forms: Julep (Yoruba), Julep (English) Print Language: ROMANSH - POA Present On Arrival: None
[2018-12-06 02:12] LABS: BASO % 0.6 % (0.0-2.0); EOS # 0.1 K/uL (0.0-0.7); EOS % 1.4 % (0.0-4.0); HEMOGLOBIN 12.2 g/dL (12.0-16.0); LYMPH # 1.4 K/uL (1.0-4.3); LYMPH % 20.7 % (20.0-40.0); MEAN CELL VOLUME 89.8 fl (81.0-99.0); MEAN CORPUSCULAR HEMOGLOBIN 29.3 pg (27.0-31.0); MEAN CORPUSCULAR HGB CONC 32.6 g/dL (33.0-37.0); MEAN PLATELET VOLUME 10.6 fl (7.2-11.7); MONO # 0.8 K/uL (0.0-0.8); MONO % 11.3 % (0.0-10.0); NEUT # 4.6 K/uL (1.8-7.0); RBC 4.17 Mil/uL (3.80-5.20); RED CELL DISTRIBUTION WIDTH 14.5 % (11.5-14.5); WHITE BLOOD COUNT 6.9 K/uL (4.8-10.8)
[2018-12-06 02:20] LABS: ALB/GLOB RATIO 1.1 (1.0-2.1); ALBUMIN 3.7 g/dL (3.5-5.0); ALT/SGPT 26 U/L (9-52); AST/SGOT 26 U/L (14-36); BLOOD UREA NITROGEN 15 mg/dl (7-17); CALCIUM 9.6 mg/dL (8.4-10.2); GFR NON-AFRICAN AMERICAN > 60
[2018-12-06 03:18] VITALS: BP 123/77; PULSE 60; TEMP 97.8; O2SAT 100
--- NOTE | 2018-12-06 09:00 | CARD ---
APPROVED REPORT Date of service: 12/05/2018 EKG Measurement Heart [id number] <Conclusion> Normal sinus rhythm Normal Electrocardiogram
--- NOTE | 2018-12-06 16:48 | RAD ---
Date of service: 12/06/2018 HISTORY: possible admission COMPARISON: 11/14/2018 FINDINGS: LUNGS: No active pulmonary disease. PLEURA: No significant pleural effusion identified, no pneumothorax apparent. CARDIOVASCULAR: No aortic atherosclerotic calcification present. Normal cardiac size. No pulmonary vascular congestion. OSSEOUS STRUCTURES: No significant abnormalities. VISUALIZED UPPER ABDOMEN: Normal. OTHER FINDINGS: None. IMPRESSION: No active disease.
== END 2018-12-06 04:13 | disposition home or self-care (01) ==
LOC: H.ER 23:40
DX: B34.9 Viral infection, unspecified (principal); I10 Essential (primary) hypertension; Z86.73 Personal history of transient ischemic attack (TIA), and cerebral infarction without residual deficits; Z88.0 Allergy status to penicillin
CPT/HCPCS: 71045; 80053; 81025; 84484; 85025; 93005; 96361; 96374; 99284; J1885; J7030